=== PATIENT | male | born 1940 | race Caucasian/White ===

== ENCOUNTER 2025-03-04 13:08 | Inpatient (IN) | payer MEDICARE, OTHER, SELFPAY ==
[2025-03-04] VITALS (16 sets, daily range): BP systolic 101–124; BP diastolic 52–95; BMI 27.7; BMI 27.8
[2025-03-04 10:19] LABS: Hematocrit 36.3 % (39.0-52.0); Hemoglobin 12.3 g/dL (13.0-18.0); Mean Corp Hgb Conc. 33.9 g/dL (33.0-37.0); Mean Corpuscular Volume 91.4 fL (80.0-94.0); Nucleated Red Blood Cells % 0 % (-); Platelet Count 107 10^3/uL (130-400); Red Cell Dist. Width 13.3 % (11.5-14.5)
[2025-03-04 10:29] LABS: ALT (SGPT) 38 U/L (0-50); AST (SGOT) 57 U/L (17-59); Albumin 3.0 g/dl (3.5-5.0); Alkaline Phosphatase 54 U/L (38-126); Blood Urea Nitrogen 20 mg/dl (9-20); Calcium 8.0 mg/dl (8.4-10.2); Carbon Dioxide 26 mmol/L (22-30); Chloride 95 mmol/L (98-107); Glucose 158 mg/dl (70-99); Potassium 4.1 mmol/L (3.5-5.1); Sodium 127 mmol/L (135-145); Total Protein 5.7 g/dl (6.3-8.2); eGFR > 60.00
[2025-03-04 10:44] LABS: COVID-19 Antigen Negative (Negative)
[2025-03-04] MEDS: BUMEX 1 MG IV (11:12)
--- NOTE | 2025-03-04 11:37 | HPS.HSE ---
Addendum entered and electronically signed by Ana Chino MD 03/04/25 15:16:
Correction- admitted to [facility] from 02/09/2025 to 02/11/25 ( Not 03/03)
Original Note:
Family Physician
-
Family Physician:
Chief Complaint
-
Shortness of breath
History of Present Illness
This is a pleasant 84-year-old man who was admitted to [facility] from 02/09/2025 to 03/03. He was admitted with urinary retention had a catheter placed. While being at the hospital he had A-fib. Patient was started on Eliquis. Pringle
catheter was placed. Patient was also treated for acute HFpEF. BNP was 1951. He had an echo which showed normal ejection fraction grade 1 diastolic dysfunction RV mildly dilated. He had a Holter monitor placed which showed atrial tachycardia
longest was 28 beats PACs 5%, PVCs 0.5% and no A-fib. He saw his purchasing assistant Dr. Vaughan after the visit. Patient also checked his weight at home. Discharge summary states that his weight was 90.7 at discharge and it is 93 when I weighed him on
a standing scale in the ER. Patient then followed up with Dr. Cadena who is outpatient neurologist Pringle catheter was removed on 02/21/2025. He had to go back to urology office because of increased frequency and was treated with cefuroxime today
being the last day. Cultures are still pending when daughter called urology office. He has been having some cold sweats and mild fevers and his sats were below 90 which prompted daughter to bring patient to the hospital today. Daughter also
stated that patient had found a tick on his body sometime in January which he removed. No abdominal pain or diarrhea
Medical History
Past Medical History
Past Medical History: Reports Other
Additional Past Medical History:
Atrial fibrillation, hypertension, hyperlipidemia, diabetes
Past Surgical History: Reports None
Social History
Tobacco: Non-smoker
Alcohol: None
Drug: None
Living: With Family
Employment: Retired ([employer])
Family History
Family History: Other (Mom CVA)
Allergies / Home Medications
Allergies reflects when Allergies were last updated in [facility].
Home Medications with original date entered in [facility]
Allergy/Medication List:
Allergies
Allergy/AdvReac Type Severity Reaction Status Date / Time
No Known Allergies Allergy Verified 03/04/25 09:44
Home Medications
.Ceroxime? 500 mg PO BID 03/04/25
PreserVision AREDS 1 tab PO BID 03/04/25
amlodipine 10 mg tablet 10 mg PO DAILY 03/04/25
apixaban 5 mg tablet (Eliquis) 5 mg PO BID 03/04/25
bumetanide 0.5 mg tablet 0.5 mg PO MOWEFR 03/04/25
coQ10 (ubiquinol) 100 mg capsule (Qunol Charlie CoQ10) 100 mg PO DAILY 03/04/25
lisinopril 40 mg tablet 40 mg PO DAILY 03/04/25
metformin 500 mg tablet 500 mg PO DAILY 03/04/25
rosuvastatin 10 mg tablet 10 mg PO DAILY 03/04/25
tamsulosin 0.4 mg capsule 0.4 mg PO HS 03/04/25
Review of Systems
-
A 12 point ROS was completed and negative except as noted: Yes
Respiratory: Reports Trouble Breathing
Cardiac: Denies Chest Pain
Abdomen/GI: Denies Abdominal Pain, Nausea, Vomiting or Diarrhea
: Reports Frequency; Denies Flank Pain, Incontinence or Difficulty Voiding
Physical Exam
Vital Signs
Vital Signs
Temp Pulse Resp BP Pulse Ox
98.6 F 95 35 119/58 92
03/04/25 10:14 03/04/25 11:12 03/04/25 11:00 03/04/25 11:12 03/04/25 11:00
Physical Exam
General: Respiratory Distress (mild)
Respiratory: Rales (bases)
Cardiac: S1/S2 and Regular Rhythm
GI: Soft, Non Tender and Normal Bowel Sounds
Musculoskeletal: No Edema
Neuro: AO x 3 and Nonfocal/grossly intact
Laboratory Results
-
03/04/25 09:52
03/04/25 09:52
Laboratory Results
Total Bilirubin 1.0 mg/dl (0.2-1.3) 03/04/25 09:52
AST 57 U/L (17-59) 03/04/25 09:52
ALT 38 U/L (0-50) 03/04/25 09:52
Alkaline Phosphatase 54 U/L (38-126) 03/04/25 09:52
Impression/Plan
-
IMPRESSION/PLAN:
Chest p-[id number] by me-shows cephalization-pulmonary edema/congestion
EKG-sinus rhythm with PVCs, left axis deviation
Echo at [facility] February 2025-LV size normal. Wall thickness normal. EF 60 to 65%. Systolic function is normal. Wall motion is normal. Diastolic function is mildly abnormal consistent with grade 1 relaxation. RV is mildly dilated.
Systolic function is normal. LA moderately dilated. RA mildly dilated. Small septal aneurysm. Mild annular calcification. Trace MR. Mild TR. IVC is dilated. No pericardial effusion
# Shortness of breath
Acute hypoxic respiratory insufficiency
COVID negative, influenza negative
Chest x-ray supports CHF- Acute HFPEF
Admit to IVU
Intake output charting, daily weights
Weight was 90.7 kg when he was discharged from [facility] now 93.1 kg in the ER on a standing scale when I weighed him
Check troponins
Cardiology evaluation
Outpatient purchasing assistant is Dr. Vaughan
CHF education
# Recently treated UTI with Pringle catheter placement early February and removal on 02/21/2025. Follows up with Dr. Cadena as outpatient. On cefuroxime. Treat with ceftriaxone while waiting for urine cultures. Obtain cultures from urology when
it is back and resulted
PVR of 450 mL in the ER therefore Pringle catheter is being replaced in the ER now this admission for retention
Continue Flomax
# Tick bite end of January-check tickborne illness panel-orders placed
# Hyponatremia-check serum and urine osmolality, urine sodium. Likely hypervolemic. Continue to follow with diuretics
# Paroxysmal atrial fibrillation-continue Eliquis. Does not seem to be on any rate controlling agents as outpatient
Holter monitor outpatient-atrial tachycardia 141 with 6 episodes-28 beats is the max, PACs 5%, PVCs 0.5%. No A-fib
# Hypertension amlodipine, lisinopril as outpatient. Hold both as blood pressure soft
# Hyperlipidemia-continue rosuvastatin
# Diabetes-hemoglobin T2n-mabwegc
On metformin 500 mg daily as outpatient
Accu-Cheks and sliding scale coverage ordered
# DVT prophylaxis-Eliquis
# CODE STATUS
Discussed with nursing at bedside
Discussed with daughter in detail at bedside
Discussed with ER attending
Time spent over 50 min
Part of this note was created using voice recognition system. Occasional wrong word or��sound alike� substitutions may have inadvertently occurred due to the inherent limitations of voice recognition software. If noted kindly bring it to my
attention for correction.
[2025-03-04 11:56] LABS: Urine Character Clear (Clear)
[2025-03-04 12:23] LABS: Urine Squamous Cell 0-2 /LPF (Few)
--- NOTE | 2025-03-04 12:38 | CON.CAR ---
Addendum entered and electronically signed by Terence Bardales, 03/04/25 16:40:
Addendum:
Patient with return of AF by telemetry. EKG demonstrates AF RVR. By telemetry, patient's heart rate less than 120 bpm. Patient reporting no significant symptoms associated with this. Patient sitting up in bed eating dinner. Will plan to
continue to monitor treat underlying infection and heart failure and monitor on telemetry. If heart rate persistently above 120 bpm, consider low-dose beta-maribel we will hold off for now. Discussed with patient, family, nursing at bedside.
Addendum entered and electronically signed by Terence Bardales, 03/04/25 15:43:
I saw and examined the patient.
The Linter Drier Operator's note was reviewed and I agree with the note.
Comment:
Patient is a pleasant 84-year-old male with a history of hypertension, diabetes mellitus type 2, ELEAZAR, paroxysmal atrial fibrillation, heart failure preserved ejection fraction with recent admission/[facility] due to AF RVR and heart
failure. Patient diagnosed with UTI which has undergone treatment however has not had resolution. Patient reporting worsening shortness of breath and fatigue. Patient's daughter also reporting increasing somnolence patient. Additionally, patient
and daughter endorsing fevers for the past few days with increasing urinary frequency patient has been taking Tylenol. On evaluation, patient noted to have abnormal proBNP at 1550 with chest x-ray demonstrating pulmonary edema. Patient EKG sinus
rhythm/sinus tachycardia without significant ST-T abnormality. Additionally, patient with significantly abnormal UA. Patient given 1 mg IV Bumex in the emergency department. In discussion with patient, he denies chest pain, palpitations,
lightheadedness, dizziness, near-syncope, PND, orthopnea syncope, or weakness. He endorses shortness of breath, fatigue, fevers.
GENERAL: no acute distress
EYE: sclera anicteric
NECK: Supple, no JVD, no carotid bruit appreciated
ENT: normal nose, moist mucosal membranes
CARDIAC: Regular rate and rhythm, +S1/S2, no murmur, rubs, or gallops
CHEST/PULMONARY: Normal effort, bibasilar crackles
ABDOMEN: Soft, without focal tenderness or distention
NEUROLOGICAL: Alert and oriented x3
SKIN: Warm and dry, no rash no edema
PSYCH: Normal and appropriate interaction.
EKG sinus rhythm PVC 93 bpm
Telemetry sinus rhythm
A/P as below
Patient presenting with evidence of acute on chronic heart failure with preserved ejection fraction with abnormal UA concerning for urinary tract infection. Patient afebrile in ER however noted continual Tylenol use. RVR, agree with IV diuresis,
monitoring intake and output, daily weights. Echocardiogram performed here demonstrates normal LV RV function without significant valvular disease. Reserved LVEF.
Continue anticoagulation for stroke risk reduction in setting of paroxysmal atrial fibrillation and [id number] score of 4 (heart failure, hypertension, age, diabetes).
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
Monitor on telemetry
Discussed with patient, family at bedside
Original Note:
Consultation
Consultation Request
Date/Time Consultation Requested: 03/04/2025, 12 00
Date/Time Consultation Performed: 03/04/2025, 1230
Requesting Provider: Dr. Escalante
Performing Provider: BRIGIDO Callejas for Dr. Bardales
Reason for Consultation: Shortness of breath
Medical History
-
Chief Complaint: Shortness of breath
History of Present Illness:
84-year-old male with past medical history hypertension, type 2 diabetes, obstructive sleep apnea, recent diagnosis of paroxysmal atrial fibrillation and heart failure preserved EF presents to [facility] ED today, 03/04/2025 with increasing shortness of
breath with exertion over the past week and low pulse ox on home check today. Appears short of breath to family with talking and walking a few steps. He had a recent admission 02/09/2025 - 02/11/2025 to [facility] and was treated for heart
failure and new onset atrial fibrillation in setting of UTI. An echocardiogram showed preserved LV function with EF 60 to 65%. proBNP on admission was 1951. He was discharged on Bumex 0.5 mg 3 times a week. He was started on Eliquis for atrial
fibrillation. Subsequent outpatient 7-day monitor demonstrated normal sinus rhythm with 1418 episodes of atrial tachycardia, longest 28 beats, fastest 130 bpm with no atrial fibrillation, no significant pauses, and no high-grade AV block. Average
heart rate 76 bpm, range 50 to 105 bpm.
He was discharged from [facility] with a Pringle catheter in the setting of UTI which was subsequently removed but he had urinary frequency and fever and was diagnosed with UTI and restarted on antibiotics 4 to 5 days ago. He has been receiving
Tylenol for fever multiple days earlier this week, last dose 03/03 PM.
He denies chest pain, edema, palpitations, lightheadedness, syncope
At baseline he is very active with gardening, farming, projects around his home.
ED evaluation:
proBNP 1550
Chest x-ray: Increased pulmonary vascularity suggesting mild heart failure
EKG: Normal sinus rhythm with PVC, left axis deviation
BUN/creatinine 20/0.7, NA 127, K4.1, TSH pending, hemoglobin 12.3, WBC 9.6, platelets 107
He received Bumex 1 mg IV in ED
Past medical history:
Hypertension
Type 2 diabetes
Obstructive sleep apnea, uses dental device
Paroxysmal atrial fibrillation, diagnosed 02/09/2025
Acute heart failure preserved EF 02/09/2025
UTIs
Hyperlipidemia
Past Medical History
Past Medical History: Other (As above)
Social History
Tobacco: Non-Smoker
Alcohol: None
Family History
Family History: Reviewed & Not Pertinent
Allergies / Home Medications
Allergy/AdvReac Type Severity Reaction Status Date / Time
No Known Allergies Allergy Verified 03/04/25 09:44
�Medication �Instructions �Recorded �Confirmed �Type
acetaminophen 500 mg tablet 1,000 mg PO TIDPRN PRN mild pain 03/04/25 03/04/25 History
(Tylenol Extra Strength)
amlodipine 10 mg tablet 10 mg PO DAILY Blood Pressure 03/04/25 03/04/25 History
apixaban 5 mg tablet (Eliquis) 5 mg PO BID Blood Clot 03/04/25 03/04/25 History
Prevention/Tx
bumetanide 0.5 mg tablet 0.5 mg PO MOWEFR Fluid 03/04/25 03/04/25 History
Retention/Swelling
cefuroxime axetil 500 mg tablet 500 mg PO BID Infection 03/04/25 03/04/25 History
coQ10 (ubiquinol) 100 mg capsule 100 mg PO DAILY Supplement 03/04/25 03/04/25 History
(Qunol Charlie CoQ10)
lisinopril 40 mg tablet 40 mg PO DAILY Blood Pressure 03/04/25 03/04/25 History
metformin 500 mg tablet,extended 500 mg PO DAILY Diabetes 03/04/25 03/04/25 History
release 24 hr
polyethylene glycol 3350 17 gram 17 g PO DAILYPRN PRN constipation 03/04/25 03/04/25 History
oral powder packet (Miralax)
rosuvastatin 10 mg tablet 10 mg PO QPM High Cholesterol 03/04/25 03/04/25 History
tamsulosin 0.4 mg capsule 0.4 mg PO HS Urinary Issue 03/04/25 03/04/25 History
vitamins A,C,Q-bqpw-whvian 2,148 1 tab PO BID Supplement 03/04/25 03/04/25 History
mcg-113 mg-45 mg-17.4 mg tablet
(PreserVision AREDS)
Review of Systems
-
History Source: Patient
All other systems: Negative unless noted
Physical Exam
Vital Signs
Temp Pulse Resp BP Pulse Ox
98.6 F 102 31 124/85 94
03/04/25 10:14 03/04/25 12:15 03/04/25 12:15 03/04/25 12:01 03/04/25 12:15
Lab Results
03/04/25 09:52
03/04/25 09:52
Orw-X-Znwonqxwynv Pept 1550 pg/ml 03/04/25 09:52
GEN: No distress, awake, Ox3
HEENT: supple, anicteric, mmm
LUNGS: rales at bases
CV: Reg, S1/S2, no murmur
ABD: soft, BS+, NT/ND
EXT: No edema
NEURO: Gross non-focal
SKIN: No rash
Impression / Plan
-
PCP: Robin Cordova
Primary high school social studies teacher: Aleksey Vaughan
Impression:
Acute heart failure preserved EF
UTI
fevers
Paroxysmal atrial fibrillation
Hypertension
Hyperlipidemia
Type 2 diabetes
Obstructive sleep apnea
Previous cardiovascular testing:
-Echocardiogram 02/09/2025: EF 60 to 65%, wall motion normal, RV mildly dilated with normal function, mild TR
-7-day CAM monitor 02/15/2025: Normal sinus rhythm average heart rate 76, Range 50-105bpm, no A-fib, 1418 episodes of atrial tachycardia, longest 28 beats, fastest 6 beats at 130 bpm
-Exercise nuclear stress test 06/28/2022: 7 minutes on Joni protocol achieving 7.7 METS, no ischemia or infarct noted on perfusion imaging
Plan
84-year-old male w/ PMH HTN type 2 DM, ELEAZAR, recent diagnosis of paroxysmal atrial fibrillation and heart failure preserved EF presents to [facility] ED w/ one week h/o increasing shortness of breath with exertion, low pulse ox on home check today, fevers,
UTI. CXR with mild HF, proBNP 1550. In NSR on EKG and telemetry.
Plan:
acute on chronic HFpEF-
-IV diuresis
- may need uptitration of outpt diuretic
-check updated echo given more pronounced SOB and fatigue
-I/O, daily wts
-daily BMP
-cont Lisinopril
-consider advance GDMT
paroxysmal afib
-new diagnosis earlier this month
-currently in NSR
- Recent 1 week outpatient CAM monitor with no A-fib, frequent A. tach
- [id number] score 5 (heart failure, hypertension, diabetes, age), continue oral anticoagulation with Eliquis. Based on age, renal function with creatinine 0.7 and weight of 93 kg he is on appropriate dose of 5 mg twice daily
- Monitor on telemetry
- Consider adding beta-maribel if recurrent A-fib with elevated rates. Currently not on AV oziel blocking agent.
Fevers-
-thought to be due UTI, rechecking UA/C&S and checking blood cultures. WBC 9.6
-CXR without pneumonia
-cont ABX for UTI
HTN
-cont SOD CUTTER Lisinopril 40 mg daily and Amlodipine 10mg daily
hyperlipidemia
-cont Rosuvastatin
Data Reviewed
-
EKG: Tracing Personally Visualized and interpreted
Labs: Labs Reviewed by me
Old Records: Requested and Reviewed
[2025-03-04] MEDS: TYLENOL 650 MG PO (13:30)
[2025-03-04 14:01] LABS: Cortisol, Random 37.5 ug/dl; TSH 0.58 uIU/ml (0.47-4.68)
[2025-03-04] MEDS: LASIX 40 MG IV (16:09)
[2025-03-04] MEDS: ROCEPHIN 1000 MG IV (16:10)
[2025-03-04] MEDS: STERILE WATER FOR INJECTION 10 ML IV (16:10)
--- NOTE | 2025-03-04 16:30 | CM ---
Reviewed chat. Met with Mr. Wood and his daughter to review discharge plans. He states prior to admission he reside with his spouse in a one and half story home with one step to enter. He states prior to admission he was independent with
ambulation and adls. He states he does not have any DME in the home. He states he has never had VNA services. He states his one daughter resides next door and the other daughter down the street. Both daughters are very supportive. Will need to
see his current functional level to see if he will have any skilled care needs. Medical work-up in progress. The discharge plan is to return home with his spouse when medically stable.
[2025-03-04 17:01] LABS: Troponin I 0.025 ng/ml
[2025-03-04 18:04] LABS: Glucose - Point of Care 155 mg/dl (70-99)
[2025-03-04] MEDS: CRESTOR 10 MG PO (18:07)
[2025-03-04] MEDS: NOVOLOG FLEXPEN-LOW RESISTANCE 1 UNITS SC (18:08)
--- NOTE | 2025-03-04 19:28 | PTCARENOTE ---
~5985-5662: Patient brought up to unit via stretcher with ED RN. Pt AOx4, Afib 100s-110s on tele, asmyptomatic at this time, EKG obtained per order. 6L NC satting 88-90%. O2 increased to 7L midflow NC and humidification added, satting 92%, crackles
present in bases, IV lasix given per order. Patient does not c/o SOB or pain at this time. Patient diaphoretic on arrival, temp 99.2F. +2/2 pulses, no edema noted. Pringle intact and draining yellow concentrated urine. Ax1 ambulating from bed to
stretcher. IV abx given per order. Family at bedside.Bloodwork drawn and sent to lab. Admission charting completed and patient oriented to unit and call varela system. All needs met at this time, call varela within reach.
~6210-4001: Patient resting in bed. SpO2 ~92% on 7L midflow NC. Patient remains in Afib 110s-120s at this time. All needs met, call varela within reach. Handoff report given to nightshift RN.
[2025-03-04] MEDS: FLOMAX 0.4 MG PO (21:32)
[2025-03-04] MEDS: ELIQUIS 5 MG PO (21:32)
[2025-03-04 22:35] LABS: Troponin I 0.036 ng/ml
--- NOTE | 2025-03-04 23:04 | W.PN.UPDATE ---
Update Note
Progress Note Update
~ 23:00 Evaluated patient for increased O2 needs now on venti mask 26%/5L, increased respiratory rate 40, HR 110-120's up to 130's at times, BP 105/71. Rectal temp 102. �Asked RN to give Tylenol 1g PO now. Ordered stat CXR.similar to previous CXR.
Patient denies SOB, chest pain, palpitations, dizziness, headache or other symptoms.
~ 1:30 Pt doing better, RR 28-30, remains on venti mask, same settings, temp 97.9.
~ 5:30 am AM labs:� Na 128 (previously 127), calcium 7.6 (adjusted calcium 8.4), potassium 3.4 - ordered supplemental potassium 40 meq PO x 1.
[2025-03-04] MEDS: TYLENOL 1000 MG PO (23:09)
[2025-03-04 23:30] LABS: Glucose - Point of Care 113 mg/dl (70-99)
--- NOTE | 2025-03-04 23:32 | PTCARENOTE ---
Addendum entered by Radha Castellano RN 03/05/25 06:09:
Clarification: Ventimask settings 50% O2
Original Note:
Pt. rec'd at change of shift laying in bed on 7L midflow O2, tachypneic/labored with RR in the 30's; pulse ox 85%, did not increase with titration up to 9L (pt. is a mouth breather). Fine crackles auscultated bilateral base. Pt. denied any SOB
despite appearing so, also denied any chest pain /discomfort. BROOMCORN SEEDER notified and came to bedside, switched pt. over to Ventimask mask (26% with 5 L O2) with pulse ox improving to 91-93%. Pt. also in Afib with HR creeping up to 120's at times. Oral
temp. 99.6; rectal temp 102. Hospitalist KYLE Stein notified and came to bedside (pt. still tachypneic and labored) - portable CXR completed and Tylenol 1000 mg PO given per Sarita. Pt. currently resting quietly but still tachypneic (rate 30';s),
pulse ox 92% on same Venti settings, will monitor for effectiveness of Tylenol and symptom management. Troponin also bumped to 0.036 - Sarita notified, pt. still denies chest pain.
[2025-03-05] VITALS (46 sets, daily range): BP systolic 58–118; BP diastolic 47–71; BMI 27.7; BMI 26.7
--- NOTE | 2025-03-05 04:47 | PTCARENOTE ---
Pt.'s rectal temp down to 96.8; pt. still tachypneic with RR high 20's, pulse ox 90-94% on Ventimask, pt. still denies SOB - S. Nika FOFANA updated, CBC added to AM labs, drawn and sent; EKG completed as ordered.
[2025-03-05 05:02] LABS: Hematocrit 37.2 % (39.0-52.0); Hemoglobin 12.7 g/dL (13.0-18.0); Mean Corp Hgb Conc. 34.1 g/dL (33.0-37.0); Mean Corpuscular Volume 91.0 fL (80.0-94.0); Platelet Count 104 10^3/uL (130-400); Red Cell Dist. Width 13.5 % (11.5-14.5)
[2025-03-05 05:12] LABS: Blood Urea Nitrogen 25 mg/dl (9-20); Calcium 7.6 mg/dl (8.4-10.2); Carbon Dioxide 30 mmol/L (22-30); Chloride 96 mmol/L (98-107); Estimated Creatinine Clearance 89 ml/min; Glucose 104 mg/dl (70-99); Magnesium 2.2 mg/dl (1.6-2.3); Potassium 3.4 mmol/L (3.5-5.1); Sodium 128 mmol/L (135-145); eGFR > 60.00
[2025-03-05 05:31] LABS: Troponin I 0.036 ng/ml
[2025-03-05] MEDS: KCL 40 MEQ PO (06:00)
--- NOTE | 2025-03-05 07:26 | W.PN.HOSP.TC ---
Today's Communication/Plan
-
IV diuresis
appreciate Cardiology
ID consult
Assessment / Plan
Assessment / Plan
Mr. Juan Wood is a 84 yo man with hx paroxysmal atrial fibrillation on Eliquis, HTN, HLD, DM, HFpEF, recent admission to [facility] for urinary retention and recent treatment for UTI presents to the ER with fevers and shortness of breath.
CXR
IMPRESSION:
1. MODERATE ACUTE INTERSTITIAL CARDIOGENIC PULMONARY EDEMA which appears similar to the prior radiographic examination from 10:31 AM.
2. Moderate cardiomegaly.
3. Mildly decreased bilateral lung volumes.
EKG-sinus rhythm with PVCs, left axis deviation
Echo at [facility] February 2025-LV size normal. Wall thickness normal. EF 60 to 65%. Systolic function is normal. Wall motion is normal. Diastolic function is mildly abnormal consistent with grade 1 relaxation. RV is mildly dilated.
Systolic function is normal. LA moderately dilated. RA mildly dilated. Small septal aneurysm. Mild annular calcification. Trace MR. Mild TR. IVC is dilated. No pericardial effusion
Acute heart failure preserved EF Exacerbation
Shortness of breath
Acute hypoxic respiratory insufficiency
-COVID negative, influenza negative
-CXR results above; BNP 1550
-strict I/O, daily wieghts
-appreciate Cardiology consult
-IV Lasix 40mg BID
Outpatient animal chiropractor is Dr. Vaughan
CHF education
Fever
-recent treatment of UTI but repeat UA with only 6-10 WBC, doubt untreated UTI
-flu, covid negative
-awaiting blood cultures
-report of recent tick bite - lyme panel pending; blood parasites negative
-consult ID
-continue IV Ceftriaxone for now started for continued tx UTI
Urinary Retention - recurrent
Recently treated UTI with Pringle catheter placement early February and removal on 02/21/2025. Follows up with Dr. Cadena as outpatient.
- Obtain cultures from urology when it is back and resulted
-PVR of 450 mL in the ER therefore Pringle catheter is being replaced in the ER now this admission for retention
-Continue Flomax
Hyponatremia
-likely hypervolemic
-continue IV Lasix
-fluid restriction
Paroxysmal atrial fibrillation
-continue Eliquis
Holter monitor outpatient-atrial tachycardia 141 with 6 episodes-28 beats is the max, PACs 5%, PVCs 0.5%. No A-fib
Essential Hypertension
-hold TIRE MOLD ENGRAVER amlodipine and Lisinopril for low BP
Hyperlipidemia
-continue rosuvastatin
Diabetes-hemoglobin [id number]
On metformin 500 mg daily as outpatient
Accu-Cheks and sliding scale coverage ordered
DVT prophylaxis-Eliquis
FULL CODE
51 minute spent on patient care
Anticipated Discharge: 24 - 48 hours
Subjective/Interval History
-
Date of Service: March 05, 2025
he is feeling okay but on NRB
urinated a lot yesterday
no chest pain
no localizing pain
no joint pain or rash
Objective Data
-
Labs:
Laboratory Results
03/05/25
04:38
WBC 8.5
Hgb 12.7 L
Hct 37.2 L
Plt Count 104 L
Sodium 128 L
Potassium 3.4 L
Chloride 96 L
Carbon Dioxide 30
BUN 25 H
Creatinine 0.7
Glucose 104 H
Calcium 7.6 L
Vital Signs:
Vital Signs
Temp Pulse Resp BP Pulse Ox
96.8 F L 96 26 90/64 94
03/05/25 06:22 03/05/25 06:08 03/05/25 04:12 03/05/25 06:08 03/05/25 04:12
I&O
03/04/25 03/05/25 03/06/25
06:59 06:59 06:59
Intake Total 240 / 240
Output Total 2950 / 2950
Balance -2710 / -2710
Review of Systems
-
History Source: Patient
All other systems: Reviewed and negative
Physical Exam
-
General: No Apparent Distress
HEENT: PERRLA
Respiratory: Rales
Cardiac: S1/S2 and JVD
GI: Soft and Nontender
Musculoskeletal: No Edema
Neuro: AO x 3
Psych: Calm
Data Reviewed
-
Diagnostic Radiology: Report Reviewed by me
Labs: Labs Reviewed by me
[2025-03-05] MEDS: ELIQUIS 5 MG PO ×2 (08:05→20:41)
[2025-03-05] MEDS: GLUCOPHAGE XR EXTENDED RELEASE 500 MG PO (08:05)
[2025-03-05] MEDS: LASIX 40 MG IV (08:05)
[2025-03-05] MEDS: NOVOLOG FLEXPEN-LOW RESISTANCE SC ×2 (08:06→13:33)
[2025-03-05 08:08] LABS: Glucose - Point of Care 104 mg/dl (70-99)
--- NOTE | 2025-03-05 09:01 | W.PN.CARDCBS ---
Addendum entered and electronically signed by Terence Bardales DO 03/05/25 09:54:
I saw and examined the patient.
The Elder Assistant's note was reviewed and I agree with the note.
Comment:
Patient seen and examined this morning. Overnight, patient with increasing oxygen requirements due to mouth breathing however improved this morning. Roughly 2.7 L output over 24 hours. Telemetry remains AF with rate control occasional PVC.
Brief episodes of hypotension this morning when standing, improved when sitting and laying back. As needed midodrine added by primary service
Infectious disease now following, patient with temp up to 102 overnight without clear source of infection. Patient reports subjective fevers but reports decreased fatigue.
Continue IV diuresis as tolerated, agree with higher level of care
Monitor on telemetry, continue anticoagulation for stroke risk reduction
Blood pressure medications on hold due to hypotension
Discussed with infectious disease, nursing, hospitalist
Original Note:
Today's Communication / Plan
-
-cont IV diuresis
-Midodrine for hypotension
Impression / Plan
-
PCP: Robin Cordova
Primary stock sorter: Aleksey Vaughan
Impression:
Acute heart failure preserved EF
UTI
fevers
Hypotension
Paroxysmal atrial fibrillation
Hypertension
Hyperlipidemia
Type 2 diabetes
Obstructive sleep apnea
Previous cardiovascular testing:
Echo 03/05/2025: Normal LV/RV size and function, LVEF 61%, trace TR, PASP 35 mmHg
-Echocardiogram 02/09/2025 (at [facility]): EF 60 to 65%, wall motion normal, RV mildly dilated with normal function, mild TR
-7-day CAM monitor 02/15/2025: Normal sinus rhythm average heart rate 76, Range 50-105bpm, no A-fib, 1418 episodes of atrial tachycardia, longest 28 beats, fastest 6 beats at 130 bpm
-Exercise nuclear stress test 06/28/2022: 7 minutes on Joni protocol achieving 7.7 METS, no ischemia or infarct noted on perfusion imaging
Plan
84-year-old male w/ PMH HTN type 2 DM, ELEAZAR, recent diagnosis of paroxysmal atrial fibrillation and heart failure preserved EF presents to [facility] ED w/ one week h/o increasing shortness of breath with exertion, low pulse ox on home check today, fevers,
UTI. CXR with mild HF, proBNP 1550. Initially in normal sinus rhythm but went into A-fib with RVR 03/05.
Plan:
acute on chronic HFpEF-
-cont IV diuresis on Lasix 40 mg IV twice daily
-Weight down 2 pounds overnight to 203 lbs, I/O negative over 2700 ml
-Had increased oxygen requirement overnight and slept with Ventimask, transition back to nasal cannula oxygen this a.m.
-repeat CXR overnight with continued mod pulm edema
- may need uptitration of outpt diuretic, was on Bumex 0.5 mg -
- K 3.4- repleted with 40 meq KCl x 1
-Echo 03/05/2025: Normal LV/RV size and function, LVEF 61%, trace TR, PASP 35 mmHg
-I/O, daily wts
-daily BMP
-home Lisinopril on hold due to hypotension
-resume/advance GDMT as BP tolerates
-agree with initiation of Midodrine PRN
paroxysmal afib
-new diagnosis 02/2025
-Presented in normal sinus rhythm but went into A-fib 03/05
-Telemetry personally reviewed:-A-fib 96 to 120 bpm, PVCs, rate controlling meds limited by hypotension
-TSH 0.58
- Recent 1 week outpatient CAM monitor with no A-fib, frequent A. tach
- [id number] score 5 (heart failure, hypertension, diabetes, age), continue oral anticoagulation with Eliquis. Based on age, renal function with creatinine 0.7 and weight of 93 kg he is on appropriate dose of 5 mg twice daily
- Consider adding beta-maribel if BP tolerates
Fevers-
-thought to be due UTI, rechecking UA/C&S and checking blood cultures. WBC 8.5 03/06
-ID has been consulted
-CXR without pneumonia
-cont ABX for UTI
HTN
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
hyperlipidemia
-cont Rosuvastatin
Progress Note - Shake Sawyer
Subjective
Date of Service: March 05, 2025
-pt reports he feels less SOB but had increasing O2 requirement overnight
-wt down 2 lbs overnight
Objective
Labs:
03/05/25 04:38
03/05/25 04:38
Labs
Hgb 12.7 g/dL (13.0-18.0) L 03/05/25 04:38
Hct 37.2 % (39.0-52.0) L 03/05/25 04:38
Plt Count 104 10^3/uL (130-400) L 03/05/25 04:38
Sodium 128 mmol/L (135-145) L 03/05/25 04:38
Potassium 3.4 mmol/L (3.5-5.1) L 03/05/25 04:38
BUN 25 mg/dl (9-20) H 03/05/25 04:38
Creatinine 0.7 mg/dL (0.7-1.3) 03/05/25 04:38
Glucose 104 mg/dl (70-99) H 03/05/25 04:38
Troponins
03/04/25 03/04/25 03/04/25
16:32 21:29 21:47
Troponin I 0.025 Cancelled 0.036 H* D
03/05/25
04:38
Troponin I 0.036 H*
Vital Signs and I&O:
Vital Signs
Temp Pulse Resp BP Pulse Ox
99.2 F 96 22 105/71 94
03/05/25 07:41 03/05/25 08:56 03/05/25 07:41 03/05/25 08:56 03/05/25 07:41
Vital Signs
Temp Pulse Resp BP Pulse Ox
99.2 F 96 22 105/71 94
03/05/25 07:41 03/05/25 08:56 03/05/25 07:41 03/05/25 08:56 03/05/25 07:41
Intake & Output
03/03/25 03/04/25 03/05/25 03/06/25
06:59 06:59 06:59 06:59
Intake Total 240 / 240
Output Total 2950 / 2950
Balance -2710 / -2710
Physical Exam
Physical Exam
GEN: No distress, awake, Ox3
HEENT: supple, anicteric, mmm
LUNGS: rales at bases
CV: Irreg, irreg, no murmur
ABD: soft, BS+, NT/ND
EXT: No edema
NEURO: Gross non-focal
SKIN: No rash
--- NOTE | 2025-03-05 09:17 | CON.ID ---
Consultation
-
Date/Time Consultation Requested: 03/05/2025 0751
Date/Time Consultation Performed: 03/05/2025 0917
Requesting Provider: Dr. Bashir
Performing Provider: Dr. Rodriguez
Reason for Consultation: Fever
Chief Complaint / Past History
History of Present Illness
Juan Wood is an 84-year-old man being evaluated at the request of Dr. Bashir in regards to fever. History is obtained from chart review, along with patient interview.
The patient reports that he recently was admitted to [facility] in early February where he was treated for arrhythmia. Additionally, while he was in inpatient he was found to be in urinary retention and ultimately discharged with a Pringle
catheter. As an outpatient he followed with Urology, and the Pringle catheter was discontinued after approximately 10 days. Thereafter, he had episodes of increased urinary frequency and was recently placed on a course of cefuroxime which continued
through yesterday. The patient presents to [facility] yesterday secondary to reported sweats and low-grade fevers, with noted pulse ox levels below 90. Additionally, it is reported that the patient had a tick on his body in January which
he removed. No reported history of rash.
At admission, the patient was not found to be febrile, but did have a mild left shift. Additionally, he was found to be hyponatremic and with a mildly elevated troponin.
At this time he denies any pain. He denies any cough. He denies any shortness of breath. He denies any abdominal pain, nausea or vomiting. He denies any myalgias or arthralgias. All other systems were reviewed and were negative.
Past History
Additional Past Medical History:
HTN
DM type II
ELEAZAR
P A-fib
CHF
Past Surgical History: None
Allergy History:
No Known Allergies Allergy (Verified 03/04/25 09:44)
Medications Reviewed: Yes
Current Antibiotics:
Ceftriaxone 1 gm IV q.24 hours (day #2)
Social History
Tobacco: Non-Smoker
Alcohol: None
Drug: None
Personal:
Living: With Family
Employment: Retired
Review of Systems
Vital Signs
Temp Pulse Resp BP Pulse Ox
99.2 F 112 22 111/68 93
03/05/25 07:41 03/05/25 09:00 03/05/25 07:41 03/05/25 09:00 03/05/25 08:00
Physical Exam
Physical Exam
Constitutional: No Acute Distress, Comfortable, Chronically Ill and Non-toxic
Head: Normocephalic
Eyes: Pupils Equal, Pupils Round, No Conjunctival Hemorrhage and Sclera Anicteric
Oral: No Thrush and No Ulcers
Cardiovascular: Irregular Rate and S1/S2; Negative S3/S4 or Murmur
Pulmonary: Clear and Non Labored; Negative Wheezes, Rales or Rhonchi
Gastrointestinal: Soft, Non Tender, Non Distended, Normal Bowel Sounds, No Rebound and No Guarding
Genito-Urinary: Pringle and Clear Urine; Negative Turbid Urine or Hematuria
Extremities: Negative Edema, Cyanosis, Erythema, Splinter Hemorrhage or Janeway Lesions
Skin: Warm and Dry; Negative Rash or Jaundice
Neurological: Awake and Alert
Psychological: Calm
Lab / Diagnostic Study Results
03/05/25 04:38
03/05/25 04:38
Abs Immat Gran (auto) 0.1 10^3/uL (0-0.05) H 03/04/25 09:52
Absolute Neuts (auto) 7.7 10^3/uL (1.4-6.5) H 03/04/25 09:52
Absolute Lymphs (auto) 1.3 10^3/uL (1.2-3.4) 03/04/25 09:52
Absolute Monos (auto) 0.4 10^3/uL (0.1-0.6) 03/04/25 09:52
Absolute Basos (auto) 0.1 10^3/uL (0-0.2) 03/04/25 09:52
Immature Gran % 1.1 % (0-0.5) H 03/04/25 09:52
Neutrophils % 80.0 % (42.2-75.2) H 03/04/25 09:52
Lymphocytes % 13.7 % (20.5-51.1) L 03/04/25 09:52
Monocytes % 4.4 % (1.7-9.3) 03/04/25 09:52
Eosinophils % 0.3 % (0-6) 03/04/25 09:52
Basophils % 0.5 % (0-2) 03/04/25 09:52
Ur Squamous Epith Cells 0-2 /LPF (Few) 03/04/25 11:43
Microbiology Results
Micro:
03/04/25 14:36 Blood Parasites Smear - Final
Blood/Venous
03/04/25 13:34 Blood Culture - Pending
Blood/Venous
03/04/25 12:57 Blood Culture - Pending
Blood/Venous
03/04/25 11:43 Urine Culture - Pending
Urine
03/04/25 09:52 Influenza Types A & B (YAHIR) - Final
Nasal Swab Negative for Influenza A & B, NAAT
Negative results must be combined with clinical observations
and patient history.
Nucleic Acid Amplification test (NAAT)performed on the
[employer] platform.
Assessment / Plan
Reported fevers
- Inpatient temperatures noted, multiple different sites of acquisition also noted. (Oral, rectal, axillary)
CHF
Urinary retention with Pringle catheter
HTN
DM type II
ELEAZAR
P A-fib
Recommendations:
Continue with empiric ceftriaxone for today.
Blood cultures are currently pending; will continue to monitor.
Reported tick exposure in January. Tickborne pathogen workup in progress, although doubt current fevers are related to that exposure.
Continue to monitor white count and temperature curve.
Would avoid multiple sources of temperature monitoring, and remain consistent with either oral or axillary temperature acquisition.
Care Review
Plan reviewed with: Physician (Cardiology)
[2025-03-05 09:22] LABS: Glycohemoglobin (HgbA1c) 6.7 % (4.0-5.9)
--- NOTE | 2025-03-05 10:00 | PTCARENOTE ---
~2629-2089: Handoff report received from nightshift RN. Pt AOx4, Afib 90s-110s on tele, SBP 90s-110s, 40 IV lasix given per order, 95% on 6L 50% ventimask then switched to 7L MFNC satting 93%, crackles noted b/l bases. Patient denies pain at this
time. Patient OOB to chair with Ax2 and walker, appears weak. Once in chair, patient c/o sustained lightheadedness/dizziness. Patient also keeps closing eyes and appears to be asleep, but easily arrousable. Blood pressure obtained via doppler with
SBP 60. Patient plced back in bed and SBP returned to 90s. Dr. Emilee Bashir made aware. ID consulted and midodrine ordered, transfer orders also in for IMU.
~2334-4326: Report called to IMU. Patient transported in stable condition in bed with this RN and PCT.
[2025-03-05 12:06] LABS: Troponin I 0.029 ng/ml
[2025-03-05 13:28] LABS: Glucose - Point of Care 105 mg/dl (70-99)
[2025-03-05] MEDS: ROCEPHIN 1000 MG IV (17:09)
[2025-03-05] MEDS: STERILE WATER FOR INJECTION 10 ML IV (17:09)
[2025-03-05] MEDS: CRESTOR 10 MG PO (17:12)
--- NOTE | 2025-03-05 17:25 | PTCARENOTE ---
Pt received from IVU after increase of level of care to IMU. Pt AAOx3, but drowsy and lethargic. SaO2 92-94% on 7L midflow NC. SaO2 falls to 80s when patient sleeps and begins breathing with mouth. Venturi mask 6L/50% FiO2 applied; SaO2 93%.
Crackles auscultated at bases. MAP remains > 65, but PRN Midodrine administered per order for SBP < 90. Pringle catheter draining christine urine. 16:00 dose of Lasix 40mg IV due. SBP 80s - 90s. Dr. Bardales, Cardiology, notified. New order to hold dose and
order for Lasix 20mg IV.
[2025-03-05 17:55] LABS: Glucose - Point of Care 186 mg/dl (70-99)
[2025-03-05] MEDS: LASIX IV (18:00)
[2025-03-05] MEDS: NOVOLOG FLEXPEN-LOW RESISTANCE 1 UNITS SC (18:00)
[2025-03-05] MEDS: LASIX 20 MG IV (18:04)
[2025-03-05] MEDS: TYLENOL 650 MG PO (20:41)
[2025-03-05] MEDS: FLOMAX 0.4 MG PO (20:41)
[2025-03-05 21:33] LABS: Glucose - Point of Care 115 mg/dl (70-99)
[2025-03-06] VITALS (28 sets, daily range): BP systolic 81–144; BP diastolic 47–124; BMI 26.6
--- NOTE | 2025-03-06 02:18 | PTCARENOTE ---
Addendum entered by Hiram Best RN 03/06/25 02:20:
midodrine given x1 - bp remains soft side of normal
Original Note:
ax3- afib controlled- bp wnl 6 liters oxygen to maintain sats- Pringle clear yellow
[2025-03-06 05:10] LABS: Hematocrit 38.0 % (39.0-52.0); Hemoglobin 12.9 g/dL (13.0-18.0); Mean Corp Hgb Conc. 33.9 g/dL (33.0-37.0); Mean Corpuscular Volume 91.3 fL (80.0-94.0); Platelet Count 114 10^3/uL (130-400); Red Cell Dist. Width 13.6 % (11.5-14.5)
[2025-03-06 05:33] LABS: Blood Urea Nitrogen 28 mg/dl (9-20); Calcium 7.4 mg/dl (8.4-10.2); Carbon Dioxide 31 mmol/L (22-30); Chloride 94 mmol/L (98-107); Estimated Creatinine Clearance 89 ml/min; Glucose 93 mg/dl (70-99); Magnesium 2.2 mg/dl (1.6-2.3); Potassium 3.9 mmol/L (3.5-5.1); Sodium 128 mmol/L (135-145); eGFR > 60.00
--- NOTE | 2025-03-06 07:57 | W.PN.CARDCBS ---
Today's Communication / Plan
-
Continue IV diuresis
Antibiotics per infectious disease, primary service
Monitor on telemetry replete electrolytes
Encourage out of bed
Impression / Plan
-
PCP: Robin Cordova
Primary insurance verify rep: Aleksey Vaughan
Impression:
Acute heart failure preserved EF
UTI
fevers
Hypotension
Paroxysmal atrial fibrillation
Hypertension
Hyperlipidemia
Type 2 diabetes
Obstructive sleep apnea
Previous cardiovascular testing:
Echo 03/05/2025: Normal LV/RV size and function, LVEF 61%, trace TR, PASP 35 mmHg
-Echocardiogram 02/09/2025 (at [facility]): EF 60 to 65%, wall motion normal, RV mildly dilated with normal function, mild TR
-7-day CAM monitor 02/15/2025: Normal sinus rhythm average heart rate 76, Range 50-105bpm, no A-fib, 1418 episodes of atrial tachycardia, longest 28 beats, fastest 6 beats at 130 bpm
-Exercise nuclear stress test 06/28/2022: 7 minutes on Joni protocol achieving 7.7 METS, no ischemia or infarct noted on perfusion imaging
Plan
84-year-old male w/ PMH HTN type 2 DM, ELEAZAR, recent diagnosis of paroxysmal atrial fibrillation and heart failure preserved EF presents to [facility] ED w/ one week h/o increasing shortness of breath with exertion, low pulse ox on home check today, fevers,
UTI. CXR with mild HF, proBNP 1550. Initially in normal sinus rhythm but went into A-fib with RVR 03/05.
Plan:
acute on chronic HFpEF, improving
-cont IV diuresis on Lasix 40 mg IV twice daily
-Weight down 2 pounds 1128�1129 to 203 lbs, I/O negative over 2700 ml; from , additional 1 L output
- Back on nasal cannula, wean O2 as tolerated
-repeat CXR 03/04 with continued mod pulm edema
- Will need uptitration of outpt diuretic, was on Bumex 0.5 mg -- upon discharge
�Replete electrolytes, goal potassium greater than 4, magnesium greater than 2
-I/O, daily wts
-daily BMP
-home Lisinopril on hold due to hypotension
-resume/advance GDMT as BP tolerates
-agree with initiation of Midodrine PRN
paroxysmal afib
-new diagnosis 02/2025
-Presented in normal sinus rhythm but went into A-fib 03/05
-Telemetry personally reviewed:-A-fib 96 to 120 bpm, PVCs, rate controlling meds limited by hypotension
-TSH 0.58
- Recent 1 week outpatient CAM monitor with no A-fib, frequent A. tach
- [id number] score 5 (heart failure, hypertension, diabetes, age), continue oral anticoagulation with Eliquis. Based on age, renal function with creatinine 0.7 and weight of 93 kg he is on appropriate dose of 5 mg twice daily
- Consider adding beta-maribel if BP tolerates
Fevers, improving
-thought to be due UTI, rechecking UA/C&S and checking blood cultures. WBC 9.6�8 0.5�9.4
- Infectious disease following
-CXR without pneumonia
-cont ABX for UTI
HTN
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
hyperlipidemia
-cont Rosuvastatin
Progress Note - Department Helper
Subjective
Date of Service: March 06, 2025
Patient seen and examined this morning. No acute events overnight. Patient resting in bed. Denies chest pain, shortness of breath, fever, chills, nausea, vomiting, weakness.
Objective
Labs:
03/06/25 04:43
03/06/25 04:43
Labs
Hgb 12.9 g/dL (13.0-18.0) L 03/06/25 04:43
Hct 38.0 % (39.0-52.0) L 03/06/25 04:43
Plt Count 114 10^3/uL (130-400) L 03/06/25 04:43
Sodium 128 mmol/L (135-145) L 03/06/25 04:43
Potassium 3.9 mmol/L (3.5-5.1) 03/06/25 04:43
BUN 28 mg/dl (9-20) H 03/06/25 04:43
Creatinine 0.7 mg/dL (0.7-1.3) 03/06/25 04:43
Glucose 93 mg/dl (70-99) 03/06/25 04:43
Troponins
03/04/25 03/04/25 03/04/25
16:32 21:29 21:47
Troponin I 0.025 Cancelled 0.036 H* D
03/05/25 03/05/25
04:38 11:36
Troponin I 0.036 H* 0.029
Vital Signs and I&O:
Vital Signs
Temp Pulse Resp BP Pulse Ox
98.0 F 87 28 99/65 90
03/06/25 03:35 03/06/25 06:00 03/06/25 06:00 03/06/25 06:00 03/06/25 06:00
Vital Signs
Temp Pulse Resp BP Pulse Ox
98.0 F 87 28 99/65 90
03/06/25 03:35 03/06/25 06:00 03/06/25 06:00 03/06/25 06:00 03/06/25 06:00
Intake & Output
03/04/25 03/05/25 03/06/25 03/07/25
06:59 06:59 06:59 06:59
Intake Total 240 / 240 720 / 720
Output Total 2950 / 2950 1800 / 1800
Balance -2710 / -2710 -1080 / -1080
Physical Exam
Physical Exam
GENERAL: no acute distress
EYE: sclera anicteric
NECK: Supple, no JVD, no carotid bruit appreciated
ENT: normal nose, moist mucosal membranes
CARDIAC: Irregularly irregular, +S1/S2, no murmur, rubs, or gallops
CHEST/PULMONARY: Normal effort, faint bibasilar rales
ABDOMEN: Soft, without focal tenderness or distention
NEUROLOGICAL: Alert and oriented x3
SKIN: Warm and dry, no rash
PSYCH: Normal and appropriate interaction.
Telemetry shows AF, PVCs
[2025-03-06 07:59] LABS: Absolute Neutrophils -Man Diff 6.9 10^3/uL (1.4-6.5)
[2025-03-06 08:00] LABS: Hypochromasia 1+; Normal RBC Morphology No; Platelets Checked Yes; Polychromasia 1+
[2025-03-06 08:01] LABS: Total Cells Counted 100
[2025-03-06 08:26] LABS: Glucose - Point of Care 99 mg/dl (70-99)
--- NOTE | 2025-03-06 08:29 | W.PN.HOSP.TC ---
Today's Communication/Plan
-
diuresis
IV Ceftriaxone
follow up tick panel; will call family to see if outpatient cultures resulted
appreciate consultants
Assessment / Plan
Assessment / Plan
Mr. Juan Wood is a 84 yo man with hx paroxysmal atrial fibrillation on Eliquis, HTN, HLD, DM, HFpEF, recent admission to [facility] for urinary retention and recent treatment for UTI presents to the ER with fevers and shortness of breath. He is found
to be in acute heart failure. Tmax 102 night of admission.
CXR
IMPRESSION:
1. MODERATE ACUTE INTERSTITIAL CARDIOGENIC PULMONARY EDEMA which appears similar to the prior radiographic examination from 10:31 AM.
2. Moderate cardiomegaly.
3. Mildly decreased bilateral lung volumes.
EKG-sinus rhythm with PVCs, left axis deviation
Echo at [facility] February 2025-LV size normal. Wall thickness normal. EF 60 to 65%. Systolic function is normal. Wall motion is normal. Diastolic function is mildly abnormal consistent with grade 1 relaxation. RV is mildly dilated.
Systolic function is normal. LA moderately dilated. RA mildly dilated. Small septal aneurysm. Mild annular calcification. Trace MR. Mild TR. IVC is dilated. No pericardial effusion
Acute heart failure preserved EF Exacerbation
Shortness of breath
Acute hypoxic respiratory insufficiency
-COVID negative, influenza negative
-CXR results above; BNP 1550
-strict I/O, daily wieghts
-appreciate Cardiology consult
-IV Lasix 40mg BID
Outpatient customs opener verifier packer is Dr. Vaughan
CHF education
Fever
-recent treatment of UTI; repeat UA with only 6-10 WBC, patient was on Cefuroxime as outpatient
-flu, covid negative
-awaiting blood cultures
-report of recent tick bite - lyme panel pending; blood parasites negative
-ID consult appreciated
-continue IV Ceftriaxone for now started for continued tx UTI
Urinary Retention - recurrent
Recently treated UTI with Pringle catheter placement early February and removal on 02/21/2025. Follows up with Dr. Cadena as outpatient.
-Obtain cultures from urology when it is back and resulted
-PVR of 450 mL in the ER therefore Pringle catheter is being replaced in the ER now this admission for retention
-Continue Flomax
Hyponatremia
-likely hypervolemic
-continue IV Lasix
-fluid restriction - will increase restriction today
Paroxysmal atrial fibrillation
-continue Eliquis
Holter monitor outpatient-atrial tachycardia 141 with 6 episodes-28 beats is the max, PACs 5%, PVCs 0.5%. No A-fib
Essential Hypertension
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
Hypotension in setting of heart failure and fever
-Midodrine PRN ordered
Hyperlipidemia
-continue rosuvastatin
Diabetes-hemoglobin [id number]
On metformin 500 mg daily as outpatient
Accu-Cheks and sliding scale coverage ordered
DVT prophylaxis-Eliquis
FULL CODE
51 minute spent on patient care
Anticipated Discharge: > 48 hours
Subjective/Interval History
-
Date of Service: March 06, 2025
he is overall feeling better
urinating a lot
no fevers overnight
Objective Data
-
Labs:
Laboratory Results
03/06/25
04:43
WBC 9.4
Hgb 12.9 L
Hct 38.0 L
Plt Count 114 L
Sodium 128 L
Potassium 3.9
Chloride 94 L
Carbon Dioxide 31 H
BUN 28 H
Creatinine 0.7
Glucose 93
Calcium 7.4 L
Vital Signs:
Vital Signs
Temp Pulse Resp BP Pulse Ox
98.0 F 87 28 99/65 90
03/06/25 03:35 03/06/25 06:00 03/06/25 06:00 03/06/25 06:00 03/06/25 06:00
I&O
03/05/25 03/06/25 03/07/25
06:59 06:59 06:59
Intake Total 240 / 240 720 / 720
Output Total 2950 / 2950 1800 / 1800
Balance -2710 / -2710 -1080 / -1080
Review of Systems
-
History Source: Patient
All other systems: Reviewed and negative
Physical Exam
-
General: No Apparent Distress
HEENT: PERRLA
Respiratory: Rales
Cardiac: S1/S2 and JVD
GI: Soft and Nontender
Musculoskeletal: No Edema
Neuro: AO x 3
Psych: Calm
Data Reviewed
-
Diagnostic Radiology: Report Reviewed by me
Labs: Labs Reviewed by me
--- NOTE | 2025-03-06 08:29 | W.PN.ID1 ---
Date of Service
Date of Service: March 06, 2025
Today's Communication
Continue ceftriaxone for today.
Assessment / Plan
Reported fevers
- Inpatient temperatures noted, multiple different sites of acquisition also noted. (Oral, rectal, axillary)
CHF
Urinary retention with Pringle catheter
HTN
DM type II
ELEAZAR
P A-fib
Recommendations:
Continue with empiric ceftriaxone for today, although if cultures remain negative and patient remains afebrile, will likely de-escalate/discontinue in the next 24 to 48 hours.
Blood cultures NGTD x 24 hours; will continue to monitor.
Reported tick exposure in January. Tickborne pathogen workup in progress, although doubt current fevers are related to that exposure.
Continue to monitor white count and temperature curve.
Would avoid multiple sources of temperature monitoring, and remain consistent with either oral or axillary temperature acquisition.
����������������������������������������������������������
Chief Complaint
-: Fever
Subjective / Review of Systems
Patient seen and examined. No events overnight.
Review of Systems: No Fever
Vital Signs / Physical Exam
Vital Signs
Vital Signs
Temp Pulse Resp BP Pulse Ox
98.0 F 87 28 99/65 90
03/06/25 03:35 03/06/25 06:00 03/06/25 06:00 03/06/25 06:00 03/06/25 06:00
Physical Exam
Constitutional: No Acute Distress, Comfortable and Non-toxic
Cardiovascular: S1/S2; Negative S3/S4
Pulmonary: Clear and Non Labored
Gastrointestinal: Soft and Non Distended
Skin: Negative Rash or Jaundice
Psychological: Calm
Objective Data
Lab Data
Lab Results
03/06/25 04:43
03/06/25 04:43
Estimated Creat Clear 89 ml/min 03/06/25 04:43
Total Bilirubin 1.0 mg/dl (0.2-1.3) 03/04/25 09:52
AST 57 U/L (17-59) 03/04/25 09:52
ALT 38 U/L (0-50) 03/04/25 09:52
Alkaline Phosphatase 54 U/L (38-126) 03/04/25 09:52
Most recent labs reviewed.
Micro Results:
03/04/25 13:34 Blood Culture - Preliminary
Blood/Venous No Growth in 24 hours- Final report to follow
03/04/25 12:57 Blood Culture - Preliminary
Blood/Venous No Growth in 24 hours- Final report to follow
03/04/25 11:43 Urine Culture - Final
Urine NO GROWTH
03/04/25 14:36 Blood Parasites Smear - Final
Blood/Venous
03/04/25 09:52 Influenza Types A & B (YAHIR) - Final
Nasal Swab Negative for Influenza A & B, NAAT
Negative results must be combined with clinical observations
and patient history.
Nucleic Acid Amplification test (NAAT)performed on the
[employer] platform.
Imaging:
03/04/2025 CXR (portable): moderate acute interstitial cardiogenic pulmonary edema which appears similar to prior radiographic examination from earlier in the day. Moderate cardiomegaly. Mildly decreased bilateral lung volumes. No infiltrate
noted.
[2025-03-06] MEDS: KCL 20 MEQ PO (09:22)
[2025-03-06] MEDS: ELIQUIS 5 MG PO ×2 (09:22→21:06)
[2025-03-06] MEDS: GLUCOPHAGE XR EXTENDED RELEASE 500 MG PO (09:22)
[2025-03-06] MEDS: MIRALAX 17 GRAMS PO (09:26)
[2025-03-06] MEDS: NOVOLOG FLEXPEN-LOW RESISTANCE SC ×3 (09:26→17:41)
[2025-03-06] MEDS: LASIX 40 MG IV ×2 (10:14→17:05)
[2025-03-06 12:03] LABS: Glucose - Point of Care 131 mg/dl (70-99)
[2025-03-06] MEDS: CRESTOR 10 MG PO (17:05)
[2025-03-06] MEDS: ROCEPHIN 1000 MG IV (17:05)
[2025-03-06] MEDS: STERILE WATER FOR INJECTION 10 ML IV (17:05)
[2025-03-06 17:40] LABS: Glucose - Point of Care 109 mg/dl (70-99)
[2025-03-06] MEDS: FLOMAX 0.4 MG PO (21:06)
[2025-03-06] MEDS: TYLENOL 1000 MG PO (21:06)
[2025-03-06 21:33] LABS: Glucose - Point of Care 157 mg/dl (70-99)
[2025-03-07] VITALS (28 sets, daily range): BP systolic 79–118; BP diastolic 45–85; PULSE 99; O2SAT 95; BMI 26.0
--- NOTE | 2025-03-07 04:18 | PTCARENOTE ---
pt did very well oob to chair and back to bed- no significant events- 6 liters to maintain sats- bp soft /normal
[2025-03-07 05:08] LABS: Blood Urea Nitrogen 28 mg/dl (9-20); Calcium 7.4 mg/dl (8.4-10.2); Carbon Dioxide 30 mmol/L (22-30); Chloride 94 mmol/L (98-107); Estimated Creatinine Clearance 89 ml/min; Glucose 109 mg/dl (70-99); Potassium 3.6 mmol/L (3.5-5.1); Sodium 127 mmol/L (135-145); eGFR > 60.00
--- NOTE | 2025-03-07 07:23 | W.PN.HOSP.TC ---
Addendum entered and electronically signed by Ana Chino MD 03/08/25 13:26:
Correction heart rate is irregular
Addendum entered and electronically signed by Ana Chino MD 03/07/25 14:54:
Chest [id number]-[id number] by me-shows cephalization-pulmonary edema/congestion
EKG-sinus rhythm with PVCs, left axis deviation
Echo at [facility] February 2025-LV size normal. Wall thickness normal. EF 60 to 65%. Systolic function is normal. Wall motion is normal. Diastolic function is mildly abnormal consistent with grade 1 relaxation. RV is mildly dilated.
Systolic function is normal. LA moderately dilated. RA mildly dilated. Small septal aneurysm. Mild annular calcification. Trace MR. Mild TR. IVC is dilated. No pericardial effusion
Echo 03/04/2025-normal LV size and function. EF 61% mild to moderate LVH. Normal diastolic function. Normal RV size and function. Moderately dilated LA. Trace TR. PA pressure 35 mmHg.
On examination patient is awake alert oriented
Cardiovascular system S1-S2 regular
Chest few rales at bases
No pedal edema
# Shortness of breath
Acute hypoxic respiratory insufficiency
COVID negative, influenza negative
Chest x-ray supports CHF- Acute HFPEF
Intake output charting, daily weights
Weight was 90.7 kg when he was discharged from [place] now 93.1 kg in the ER . It is 86.9 on a bed scale. Patient should be weighed on a standing scale
Slightly elevated troponin-nonischemic myocardial injury
Cardiology evaluation
Outpatient machine cleaner is Dr. Vaughan
CHF education
# Fever-tickborne illness-Anaplasma positive-started on doxycycline
Tick was found from his abdomen and of January
# Recently treated UTI with Hernandez catheter placement early February and removal on 02/21/2025. Follows up with Dr. Cadena as outpatient.
Outpatient cultures with Streptococcus hemolyticus resistant to oxacillin and also tetracyclines
Will defer to infectious disease regarding treatment
Patient was treated with cefuroxime as outpatient and ceftriaxone here
Hernandez catheter placed for retention-taken out today 03/07/2025 for voiding trial
Continue Flomax
# Hypokalemia-resolved
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 Patient will benefit from Samsca. Pharmacy requesting nephrology evaluation for Samsca-consult placed
# Paroxysmal atrial fibrillation-continue Eliquis. Does not seem to be on any rate controlling agents as outpatient
Holter monitor outpatient-atrial tachycardia 141 with 6 episodes-28 beats is the max, PACs 5%, PVCs 0.5%. No A-fib
# Diabetes-hemoglobin A1c-6.7
On metformin 500 mg daily as outpatient-continue
Accu-Cheks and sliding scale coverage ordered
# Hypertension amlodipine, lisinopril as outpatient. Hold both as blood pressure soft
# Hyperlipidemia-continue rosuvastatin
# Hypoalbuminemia
# DVT prophylaxis-Eliquis
# CODE STATUS
Discussed with nursing
Discussed with pharmacy
Discussed with nephrology
Original Note:
Today's Communication/Plan
-
Anaplasma positive start Doxycycline
Voiding trial
Samsca for hyponatremia
Assessment / Plan
Assessment / Plan
Mr. Juan Wood is a 84 yo man with hx paroxysmal atrial fibrillation on Eliquis, HTN, HLD, DM, HFpEF, recent admission to [facility] for urinary retention and recent treatment for UTI presents to the ER with fevers and shortness of breath. He is found
to be in acute heart failure. Tmax 102 night of admission.
CXR105/04/24
1. MODERATE ACUTE INTERSTITIAL CARDIOGENIC PULMONARY EDEMA which appears similar to the prior radiographic examination from 10:31 AM.
2. Moderate cardiomegaly.
3. Mildly decreased bilateral lung volumes.
EKG 03/05/25
-afib with PVCs, left axis deviation
-QTcB 485
Echo at [facility] February 2025
-LV size normal. Wall thickness normal. EF 60 to 65%. Systolic function is normal. Wall motion is normal. Diastolic function is mildly abnormal consistent with grade 1 relaxation. RV is mildly dilated. Systolic function is normal. LA
moderately dilated. RA mildly dilated. Small septal aneurysm. Mild annular calcification. Trace MR. Mild TR. IVC is dilated. No pericardial effusion
Acute heart failure preserved EF Exacerbation
Shortness of breath
Acute hypoxic respiratory insufficiency
-COVID negative, influenza negative
-CXR results above; BNP 1550
-strict I/O - NB -295ml
-daily weights - 1.9kg loss
-appreciate Cardiology consult
-IV Lasix 40mg BID
-Pt is on 6L O2
-(+)hypochromasia, polychromasia
Outpatient machine cleaner is Dr. Vaughan
CHF education
Fever
-recent treatment of UTI; repeat UA with only 6-10 WBC, patient was on Cefuroxime as outpatient
-urine cx - neg
-flu, covid negative
-blood cultures - neg in 48h
-ID consult appreciated
-report of recent tick bite 2 months ago - Tickborne pathogen PCR testing is positive for Anaplasma--> start 2 weeks Doxycycline #D1
-blood parasites negative
-for continued tx UTI --> IV Ceftriaxone #D3 d/c switch to 2 week course Doxycycline 100mg PO BID D#1 for anaplasma coverage
Urinary Retention - recurrent
Recently treated UTI with Hernandez catheter placement early February and removal on 02/21/2025. Follows up with Dr. Cadena as outpatient.
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 ID was notified, colony count low.
-Voiding trial today
-Continue Flomax
Hyponatremia
-likely hypervolemic
-continue IV Lasix 40mg BID
-fluid restriction
-Na 127 - ordered Samsca
Paroxysmal atrial fibrillation
-continue Eliquis
Holter monitor outpatient-atrial tachycardia 141 with 6 episodes-28 beats is the max, PACs 5%, PVCs 0.5%. No A-fib
Essential Hypertension
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
Hypotension in setting of heart failure and fever
-on 03/05 SBP dropped to 60's and transferred to IMU from IVU
-Continue Midodrine PRN for SBP<90
Hyperlipidemia
-continue rosuvastatin
Diabetes Type II
-Hb A1c-6.7
On metformin 500 mg daily as outpatient
Accu-Cheks and sliding scale coverage ordered
DVT prophylaxis-Eliquis
FULL CODE
51 minute spent on patient care
Anticipated Discharge: > 48 hours
Subjective/Interval History
-
Date of Service: March 07, 2025
He reports feeling better today. He denies chills, abdominal pain. This morning his hernandez catheter was removed and he reports urgency to urinate every 30mins improved as well. No chest pain, SOB, palpitations.
Objective Data
-
Labs:
Laboratory Results
03/07/25
04:07
Sodium 127 L
Potassium 3.6
Chloride 94 L
Carbon Dioxide 30
BUN 28 H
Creatinine 0.7
Glucose 109 H
Calcium 7.4 L
Vital Signs:
Vital Signs
Temp Pulse Resp BP Pulse Ox
97.5 F 84 23 104/72 93
03/07/25 04:45 03/07/25 06:00 03/07/25 06:00 03/07/25 06:00 03/07/25 06:00
I&O
03/06/25 03/07/25 03/08/25
06:59 06:59 06:59
Intake Total 720 / 720 1680 / 1680
Output Total 1800 / 1800 1974 / 1974
Balance -1080 / -1080 -295 / -295
Review of Systems
-
History Source: Patient
Constitutional: Reports No Symptoms
EENT: Reports No Symptoms Reported
Respiratory: Reports No Symptoms
Cardiac: Reports No Symptoms
Abdomen/GI: Reports No Symptoms
Breast: Reports No Symptoms
Genitourinary: Reports No Symptoms
Musculoskeletal: Reports No Symptoms
Skin: Reports No Symptoms
Neuro: Reports No Symptoms
Endocrine: Reports No Symptoms
Hematologic / Lymphatic: Reports No Symptoms
Allergy / Immunology: Reports No Symptoms
Physical Exam
-
General: Well Developed, Well Nourished and Conversant
HEENT: Normocephalic, Atraumatic, Hearing Impaired and Oxygen (6L)
Respiratory: Clear to Auscultation and Decreased Breath Sounds
Cardiac: S1/S2 and Irregular Rhythm
Breast: Deferred by me
GI: Soft, Nontender and Nondistended
Rectal: Deferred by Provider
Genito-urinary: Hernandez (removed for voiding trial)
Musculoskeletal: No Clubbing, No Cyanosis and No Edema
Skin: Warm and Dry
Neuro: AO x 3, No Motor Deficits and No Sensory Deficits
Psych: Calm
[2025-03-07 07:51] LABS: Glucose - Point of Care 111 mg/dl (70-99)
[2025-03-07] MEDS: NOVOLOG FLEXPEN-LOW RESISTANCE SC ×2 (08:35→12:49)
[2025-03-07 09:32] LABS: Albumin 2.4 g/dl (3.5-5.0)
--- NOTE | 2025-03-07 09:44 | W.PN.CARDCBS ---
Today's Communication / Plan
-
Remains hypoxic on 4 L
Continue IV Lasix and follow sodium closely
Continue Rocephin
Remains in A-fib with reasonable rate control on Eliquis
Consider cardioversion prior to discharge when oxygenation has improved
Impression / Plan
-
PCP: Robin Cordova
Primary custom shoemaker: Aleksey Vaughan
Impression:
Acute heart failure preserved EF
UTI
fevers
Hypotension
Paroxysmal atrial fibrillation
Hypertension
Hyperlipidemia
Type 2 diabetes
Obstructive sleep apnea
Previous cardiovascular testing:
Echo 03/05/2025: Normal LV/RV size and function, LVEF 61%, trace TR, PASP 35 mmHg
-Echocardiogram 02/09/2025 (at [facility]): EF 60 to 65%, wall motion normal, RV mildly dilated with normal function, mild TR
-7-day CAM monitor 02/15/2025: Normal sinus rhythm average heart rate 76, Range 50-105bpm, no A-fib, 1418 episodes of atrial tachycardia, longest 28 beats, fastest 6 beats at 130 bpm
-Exercise nuclear stress test 06/28/2022: 7 minutes on Joni protocol achieving 7.7 METS, no ischemia or infarct noted on perfusion imaging
Plan
Appears to be improving from a volume standpoint with weight loss
Remains on 4 L of oxygen
Also remains hyponatremic
Unclear if hypoxemia is due to CHF versus pneumonia
Continue IV Lasix, may need to consider Samsca
Continue Rocephin
Lasix remains on hold due to hypotension
Continue midodrine
Remains in rate controlled atrial fibrillation and on Eliquis
Could consider cardioversion prior to discharge when oxygenation has improved although may go in and out of A-fib at home
[id number] score 5 (heart failure, hypertension, diabetes, age), continue oral anticoagulation with Eliquis. Based on age, renal function with creatinine 0.7 and weight of 93 kg he is on appropriate dose of 5 mg twice daily
Updated patient's daughter in detail
PREADMIT DATA
84-year-old male w/ PMH HTN type 2 DM, ELEAZAR, recent diagnosis of paroxysmal atrial fibrillation and heart failure preserved EF presents to [facility] ED w/ one week h/o increasing shortness of breath with exertion, low pulse ox on home check today, fevers,
UTI. CXR with mild HF, proBNP 1550. Initially in normal sinus rhythm but went into A-fib with RVR 03/05.
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
Subjective
Date of Service: March 07, 2025
No complaints
Objective
Labs:
03/06/25 04:43
03/07/25 04:07
Labs
Hgb 12.9 g/dL (13.0-18.0) L 03/06/25 04:43
Hct 38.0 % (39.0-52.0) L 03/06/25 04:43
Plt Count 114 10^3/uL (130-400) L 03/06/25 04:43
Sodium 127 mmol/L (135-145) L 03/07/25 04:07
Potassium 3.6 mmol/L (3.5-5.1) 03/07/25 04:07
BUN 28 mg/dl (9-20) H 03/07/25 04:07
Creatinine 0.7 mg/dL (0.7-1.3) 03/07/25 04:07
Glucose 109 mg/dl (70-99) H 03/07/25 04:07
Troponins
03/04/25 03/04/25 03/04/25
16:32 21:29 21:47
Troponin I 0.025 Cancelled 0.036 H* D
03/05/25 03/05/25
04:38 11:36
Troponin I 0.036 H* 0.029
Vital Signs and I&O:
Vital Signs
Temp Pulse Resp BP Pulse Ox
97.5 F 84 23 104/72 93
03/07/25 04:45 03/07/25 06:00 03/07/25 06:00 03/07/25 06:00 03/07/25 06:00
Vital Signs
Temp Pulse Resp BP Pulse Ox
97.5 F 84 23 104/72 93
03/07/25 04:45 03/07/25 06:00 03/07/25 06:00 03/07/25 06:00 03/07/25 06:00
Intake & Output
03/05/25 03/06/25 03/07/25 03/08/25
06:59 06:59 06:59 06:59
Intake Total 240 / 240 720 / 720 1680 / 1680
Output Total 2950 / 2950 1800 / 1800 1974 / 1974 75 / 75
Balance -2710 / -2710 -1080 / -1080 -295 / -295 -75 / -75
Physical Exam
Physical Exam
General: Well developed, well nourished in NAD.
Neck: Supple, no JVD, HJR, carotids +2 B/L, no bruits bilaterally.
Heart: Non displaced PMI, irregular, no murmurs, No S3, S4, no rubs.
Lungs: Scattered rhonchi
Extremities: No clubbing, cyanosis or edema bilaterally.
Neuro: Grossly nonfocal, awake, alert and oriented x3.
[2025-03-07] MEDS: LASIX 40 MG IV (09:46)
[2025-03-07] MEDS: GLUCOPHAGE XR EXTENDED RELEASE 500 MG PO (09:48)
[2025-03-07] MEDS: ELIQUIS 5 MG PO ×2 (09:49→20:45)
--- NOTE | 2025-03-07 09:54 | W.PN.ID1 ---
Date of Service
Date of Service: March 07, 2025
Today's Communication
Discontinue further Rocephin. Place on 2-week course of doxycycline.
Assessment / Plan
Reported fevers
- Inpatient temperatures noted, multiple different sites of acquisition also noted. (Oral, rectal, axillary)
CHF
Urinary retention
HTN
DM type II
ELEAZAR
P A-fib
Recommendations:
Tickborne pathogen PCR testing is positive for Anaplasma. Patient reports prior history of tick found on abdomen approximately 2 months ago.
Discontinue further ceftriaxone.
Will place on a 2-week course of doxycycline in the treatment of Anaplasma, although not sure whether patient may have already cleared his infection. (PCR testing may remain positive even after clearance of infection).
Continue to monitor white count and temperature curve.
Would avoid multiple sources of temperature monitoring, and remain consistent with either oral or axillary temperature acquisition.
����������������������������������������������������������
Chief Complaint
-: Fever
Subjective / Review of Systems
Patient seen and examined. Remains afebrile at this time. Of note, only recorded 'fever' was obtained via rectal route on 03/04.
Review of Systems: No Cough
Vital Signs / Physical Exam
Vital Signs
Vital Signs
Temp Pulse Resp BP Pulse Ox
97.5 F 84 23 117/66 93
03/07/25 04:45 03/07/25 06:00 03/07/25 06:00 03/07/25 09:46 03/07/25 06:00
Physical Exam
Constitutional: No Acute Distress, Comfortable and Non-toxic
Cardiovascular: S1/S2; Negative S3/S4
Pulmonary: Clear and Non Labored
Gastrointestinal: Soft and Non Distended
Skin: Negative Rash or Jaundice
Psychological: Calm
Objective Data
Lab Data
Lab Results
03/06/25 04:43
03/07/25 04:07
Estimated Creat Clear 89 ml/min 03/07/25 04:07
Total Bilirubin 1.0 mg/dl (0.2-1.3) 03/04/25 09:52
AST 57 U/L (17-59) 03/04/25 09:52
ALT 38 U/L (0-50) 03/04/25 09:52
Alkaline Phosphatase 54 U/L (38-126) 03/04/25 09:52
Most recent labs reviewed.
Micro Results:
03/04/25 13:34 Blood Culture - Preliminary
Blood/Venous No Growth in 48 hours- Final report to follow
03/04/25 12:57 Blood Culture - Preliminary
Blood/Venous No Growth in 48 hours- Final report to follow
03/04/25 11:43 Urine Culture - Final
Urine NO GROWTH
03/04/25 14:36 Blood Parasites Smear - Final - no blood parasites seen.
Blood/Venous
03/04/25 09:52 Influenza Types A & B (YAHIR) - Final
Nasal Swab Negative for Influenza A & B, NAAT
Negative results must be combined with clinical observations
and patient history.
Nucleic Acid Amplification test (NAAT)performed on the
[employer] platform.
Laboratory Tests
Tickborne pathogen PCR 03/04/25
14:36
A. phagocytophilum (PCR) Detected A
E.chaffeensis DNA (PCR) Not detected
E. ewingii/canis (PCR) Not detected
E. muris-like DNA (PCR) Not detected
Imaging:
03/04/2025 CXR (portable): moderate acute interstitial cardiogenic pulmonary edema which appears similar to prior radiographic examination from earlier in the day. Moderate cardiomegaly. Mildly decreased bilateral lung volumes. No infiltrate
noted.
[2025-03-07] MEDS: VIBRAMYCIN 100 MG PO ×2 (11:51→20:46)
[2025-03-07 12:12] LABS: Glucose - Point of Care 118 mg/dl (70-99)
[2025-03-07 12:19] LABS: Hematocrit 40.2 % (39.0-52.0); Hemoglobin 13.5 g/dL (13.0-18.0); Mean Corp Hgb Conc. 33.6 g/dL (33.0-37.0); Mean Corpuscular Volume 92.0 fL (80.0-94.0); Nucleated Red Blood Cells % 0.6 % (-); Platelet Count 152 10^3/uL (130-400); Red Cell Dist. Width 13.6 % (11.5-14.5)
[2025-03-07] MEDS: KCL ELIXIR 20 MEQ PO (13:07)
--- NOTE | 2025-03-07 13:10 | PTCARENOTE ---
pt AOX3 this AM, Pringle out DTV 1230, did meet this. during transfer to chair with PT became dizzy and not making sense verbally 79/54. Head back feet up. Midodrine administered. recheck BP after few mins 99/70. PT moved back to bed safely and pt
coherent. 109/75. Doxy started for positive blood result for Tick borne bite. FR, monitor Na+, wt.
--- NOTE | 2025-03-07 13:28 | W.CON.NEPH ---
Consultation
-
Date/Time Consultation Requested: 03/07/25 1300
Date/Time Consultation Performed: 03/07/25 1330
Requesting Provider: Ana Sanders
Performing Provider: Waleska Kuo
Reason for Consultation: Hypoantremia
Medical History
-
Chief Complaint: SOB
History of Present Illness:
84-year-old man with past medical history hypertension Amlodipine, lisinopril, type 2 diabetes on metformin, obstructive sleep apnea, recent diagnosis of paroxysmal atrial fibrillation on AC with Eliquis, and heart failure preserved EF on bumex who
presents to [facility] ED p 03/04/2025 with increasing shortness of breath with exertion over the past week. He had a recent admission 02/09/2025 - 02/11/2025 to [facility] and was treated for heart failure and new onset atrial fibrillation in
setting of UTI. An echocardiogram showed preserved LV function with EF 60 to 65%. He was discharged on Bumex 0.5 mg 3 times a week. He was started on Eliquis for atrial fibrillation. He was discharged from [place] with a Hernandez catheter in the
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 He was seen by Dr Cadena at [facility]. He is being treated for CHF flare with IV lasix with
significant loss of weight 6kg. His sodium remained low 127 despite diuresis hence Nephrology asked to eval for hyponatremia.
He denies chest pain. SOb improving, remains on 4lit of O2, he felt dizzy with PT today and has soft BPs for few days despite midodrine. He also on Doxycycline for tick bite in Jan. He had retention on admit and hernandez catheter was placed and just
removed this morning. He reports eating well, no n/.v/ no abd pain,. no diarrhea. No NSAIDs use.
Past Medical History
Atrial fibrillation, hypertension, hyperlipidemia, diabetes
Social History
Tobacco: Non-Smoker
Alcohol: None
Drug: None
Living: With Family
Employment: Retired
Family History
mom cva
Allergies / Home Medications
Allergy/AdvReac Type Severity Reaction Status Date / Time
No Known Allergies Allergy Verified 03/04/25 09:44
�Medication �Instructions �Recorded �Confirmed �Type
acetaminophen 500 mg tablet 1,000 mg PO TIDPRN PRN mild pain 03/04/25 03/04/25 History
(Tylenol Extra Strength)
amlodipine 10 mg tablet 10 mg PO DAILY Blood Pressure 03/04/25 03/04/25 History
apixaban 5 mg tablet (Eliquis) 5 mg PO BID Blood Clot 03/04/25 03/04/25 History
Prevention/Tx
bumetanide 0.5 mg tablet 0.5 mg PO MOWEFR Fluid 03/04/25 03/04/25 History
Retention/Swelling
coQ10 (ubiquinol) 100 mg capsule 100 mg PO DAILY Supplement 03/04/25 03/04/25 History
(Qunol Charlie CoQ10)
lisinopril 40 mg tablet 40 mg PO DAILY Blood Pressure 03/04/25 03/04/25 History
metformin 500 mg tablet,extended 500 mg PO DAILY Diabetes 03/04/25 03/04/25 History
release 24 hr
polyethylene glycol 3350 17 gram 17 g PO DAILYPRN PRN constipation 03/04/25 03/04/25 History
oral powder packet (Miralax)
rosuvastatin 10 mg tablet 10 mg PO QPM High Cholesterol 03/04/25 03/04/25 History
tamsulosin 0.4 mg capsule 0.4 mg PO HS Urinary Issue 03/04/25 03/04/25 History
vitamins A,C,Q-znpe-kcggrv 2,148 1 tab PO BID Supplement 03/04/25 03/04/25 History
mcg-113 mg-45 mg-17.4 mg tablet
(PreserVision AREDS)
Review of Systems
-
All other systems: Negative unless noted
Physical Exam
Vital Signs
Vital Signs
Temp Pulse Resp BP Pulse Ox
97.6 F 100 31 109/75 96
03/07/25 11:04 03/07/25 13:05 03/07/25 13:05 03/07/25 13:05 03/07/25 13:05
Lab Results
WBC 9.0 10^3/uL (4.8-10.8) 03/07/25 11:57
RBC 4.37 10^6/uL (4.70-6.10) L 03/07/25 11:57
Hgb 13.5 g/dL (13.0-18.0) 03/07/25 11:57
Hct 40.2 % (39.0-52.0) 03/07/25 11:57
Plt Count 152 10^3/uL (130-400) D 03/07/25 11:57
Sodium 127 mmol/L (135-145) L 03/07/25 04:07
Potassium 3.6 mmol/L (3.5-5.1) 03/07/25 04:07
Chloride 94 mmol/L (98-107) L 03/07/25 04:07
Carbon Dioxide 30 mmol/L (22-30) 03/07/25 04:07
BUN 28 mg/dl (9-20) H 03/07/25 04:07
Creatinine 0.7 mg/dL (0.7-1.3) 03/07/25 04:07
eGFR > 60.00 03/07/25 04:07
Glucose 109 mg/dl (70-99) H 03/07/25 04:07
Calcium 7.4 mg/dl (8.4-10.2) L 03/07/25 04:07
Buh-P-Fhurxqqqvxt Pept 1550 pg/ml 03/04/25 09:52
Albumin 2.4 g/dl (3.5-5.0) L 03/07/25 04:07
Physical Exam
General: Awake, Alert, Oriented, AOx3 and No Distress
HEENT: EOMI, Anicteric, Conjunctivae Clear and No JVD
Respiratory: Normal Excursion, Nonlabored Respirations and Other (coarse)
Cardiac: S1/S2 and Regular Rate/Rhythm
Breast: Deferred by me
Abdomen: Soft, Nontender and Nondistended
Rectal: Deferred by Provider
Musculoskeletal: No Cyanosis and No Edema
Skin: No Rash
Neuro: Nonfocal/Grossly Intact
Psych: Mood/afflect pleasant, Insight/judgement good and Appropriate
Data Reviewed
-
Labs: Labs Reviewed by me, Discussed with Nurse and Discussed with Patient
Assessment/Plan
-
IMP:
Shortness of breath
Acute hypoxic respiratory insufficiency
Acute on chronic HFPEF
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
Recently treated UTI with Hernandez catheter placement early February and removal on 02/21/2025. Follows up with Dr. Cadena as outpatient.
Hyponatremia
Paroxysmal atrial fibrillation
Diabetes-hemoglobin A1c-6.7
Hypertension now hypotension on midodrine
Hyperlipidemia
Hypoalbuminemia
Plan:
A/w sob, after recent d/c from [facility] treated for new afib and CHF, Hernandez for retention
hyponatremia likely multifactorial with CHF but also potentiated by low BPs
he lost close to 6kg since admit and no sig edema on exam
would hold lasix till he is more hemodynamically stable
cortisol was ok and echo noted with normal EF
would also wait on samsca too
recheck CXR, bnp
check U PCR for albuminuria on UA, serum alb low at 2.4
corrected gogo is normal, vit D level pending
follow ortho vitals and labs
monitor bladder scan off hernandez, on flomax
d/w pt and nursing
[2025-03-07 16:03] LABS: Vitamin D, 25-OH*** 40.9 ng/mL (30-80)
[2025-03-07] MEDS: CRESTOR 10 MG PO (17:03)
[2025-03-07 17:28] LABS: Glucose - Point of Care 152 mg/dl (70-99)
[2025-03-07] MEDS: NOVOLOG FLEXPEN-LOW RESISTANCE 1 UNITS SC (17:53)
[2025-03-07] MEDS: FLOMAX 0.4 MG PO (20:45)
[2025-03-07 21:27] LABS: Glucose - Point of Care 202 mg/dl (70-99)
--- NOTE | 2025-03-07 22:30 | PTCARENOTE ---
Recc'd pt at shift change; AAOx3, able to make needs known, NINILCHIK. Offers no complaints. Afib on the monitor, controlled in the 70s-80s. Tolerating RA, SpO2 at or above goal of 92%. Lungs clear, diminished in the bases, deep breathing exercises
encouraged. Remainder of assessment as documented. Updated on POC and need for urine specimen for outstanding lab order, urinal at the bedside within reach. D/w pt the importance of alerting staff if he feels he needs to get out of bed, pt
verbalizes compliance, bed alarm in place for safety. Pt resting comfortably in bed at this time, call varela within reach.
[2025-03-08] VITALS (33 sets, daily range): BP systolic 83–136; BP diastolic 50–92; PULSE 82–110; O2SAT 94; BMI 25.8; BMI 26.7
[2025-03-08 05:30] LABS: Hematocrit 38.7 % (39.0-52.0); Hemoglobin 12.8 g/dL (13.0-18.0); Mean Corp Hgb Conc. 33.1 g/dL (33.0-37.0); Mean Corpuscular Volume 91.3 fL (80.0-94.0); Platelet Count 178 10^3/uL (130-400); Red Cell Dist. Width 13.8 % (11.5-14.5)
[2025-03-08 05:56] LABS: Blood Urea Nitrogen 21 mg/dl (9-20); Calcium 7.4 mg/dl (8.4-10.2); Carbon Dioxide 30 mmol/L (22-30); Chloride 101 mmol/L (98-107); Estimated Creatinine Clearance 104 ml/min; Glucose 123 mg/dl (70-99); Potassium 3.8 mmol/L (3.5-5.1); Sodium 130 mmol/L (135-145); eGFR > 60.00
[2025-03-08 07:37] LABS: Glucose - Point of Care 114 mg/dl (70-99)
--- NOTE | 2025-03-08 07:52 | W.PN.HOSP.TC ---
Addendum entered and electronically signed by Ana Chino MD 03/08/25 15:09:
Correction acute hypoxic respiratory failure not insufficiency
Addendum entered and electronically signed by Ana Chino MD 03/08/25 13:26:
Seen and examined the patient. Agree with the plan formulated by the resident. See changes in my documentation
Addendum entered and electronically signed by Ana Chino MD 03/08/25 13:25:
Chest [id number] by me-shows cephalization-pulmonary edema/congestion
EKG-sinus rhythm with PVCs, left axis deviation
Echo at [facility] February 2025-LV size normal. Wall thickness normal. EF 60 to 65%. Systolic function is normal. Wall motion is normal. Diastolic function is mildly abnormal consistent with grade 1 relaxation. RV is mildly dilated.
Systolic function is normal. LA moderately dilated. RA mildly dilated. Small septal aneurysm. Mild annular calcification. Trace MR. Mild TR. IVC is dilated. No pericardial effusion
Echo 03/04/2025-normal LV size and function. EF 61% mild to moderate LVH. Normal diastolic function. Normal RV size and function. Moderately dilated LA. Trace TR. PA pressure 35 mmHg.
On examination patient is awake alert oriented
Cardiovascular system S1-S2 irregular
Chest CTA
No pedal edema
# Shortness of breath
Acute hypoxic respiratory insufficiency
COVID negative, influenza negative
Chest x-ray supports CHF- Acute HFPEF- CXR improved.
Intake output charting, daily weights
Weight was 90.7 kg when he was discharged from [place] now 93.1 kg in the ER . 89.2 KG today. ( Patient should be weighed on a standing scale)
Slightly elevated troponin-nonischemic myocardial injury
Cardiology following
Outpatient copy writer is Dr. Vaughan
CHF education
Patient slightly orthostatic-may be overdiuresed but ,he does give a history that he always is very cautious when changing positions may be he has longstanding orthostatic hypotension
# Fever-tickborne illness-Anaplasma positive-started on doxycycline
Tick was found from his abdomen and of January
# Recently treated UTI with Pringle catheter placement early February and removal on 02/21/2025. Follows up with Dr. Cadena as outpatient.
Outpatient cultures with Streptococcus hemolyticus resistant to oxacillin and also tetracyclines
Will defer to infectious disease regarding treatment
Patient was treated with cefuroxime as outpatient and ceftriaxone here.
No more AB per D/W ID as not enough colonies of bacteria to call it a UTI.
Pringle catheter placed for retention-taken out 03/07/2025 , voiding well.
Continue Flomax
# Hypokalemia-resolved
# Hyponatremia-Holdimg lasix
# Paroxysmal atrial fibrillation-continue Eliquis. Does not seem to be on any rate controlling agents as outpatient
Rates are controlled.
Holter monitor outpatient-atrial tachycardia 141 with 6 episodes-28 beats is the max, PACs 5%, PVCs 0.5%. No A-fib
Plan for OTTONIEL CV tomorrow
# Diabetes-hemoglobin A1c-6.7
On metformin 500 mg daily as outpatient-continue
Accu-Cheks and sliding scale coverage ordered
# Hypertension amlodipine, lisinopril as outpatient. Hold both as blood pressure soft
# Hyperlipidemia-continue rosuvastatin
# Hypoalbuminemia
# DVT prophylaxis-Eliquis
# CODE STATUS
Discussed with nursing
Discussed with nephrology and Cardiology
I did not call the family as Dr. Cortez has updated patient's daughter and granddaughter.
Part of this note was created using voice recognition system. Occasional wrong word or��sound alike� substitutions may have inadvertently occurred due to the inherent limitations of voice recognition software. If noted kindly bring it to my
attention for correction.
Original Note:
Today's Communication/Plan
-
If Na stable tomorrow possible discharge
Step down from IMU
Use oral appliance for hypoxemia at night
Daily weight check
Daily I/O
Follow recs
Assessment / Plan
Assessment / Plan
Mr. Juan Wood is a 84 yo man with hx paroxysmal atrial fibrillation on Eliquis, HTN, HLD, DM, HFpEF, recent admission to [facility] for urinary retention and recent treatment for UTI presents to the ER with fevers and shortness of breath. He is found
to be in acute heart failure. Tmax 102 night of admission.
CXR105/04/24
1. MODERATE ACUTE INTERSTITIAL CARDIOGENIC PULMONARY EDEMA which appears similar to the prior radiographic examination from 10:31 AM.
2. Moderate cardiomegaly.
3. Mildly decreased bilateral lung volumes.
EKG 03/05/25
-afib with PVCs, left axis deviation
-QTcB 485
Echo at [facility] February 2025
-LV size normal. Wall thickness normal. EF 60 to 65%. Systolic function is normal. Wall motion is normal. Diastolic function is mildly abnormal consistent with grade 1 relaxation. RV is mildly dilated. Systolic function is normal. LA
moderately dilated. RA mildly dilated. Small septal aneurysm. Mild annular calcification. Trace MR. Mild TR. IVC is dilated. No pericardial effusion
Acute heart failure preserved EF Exacerbation
Shortness of breath
Acute hypoxic respiratory insufficiency
-COVID negative, influenza negative
-CXR results above; BNP 1550
-strict I/O NB - 885
-daily weights
-appreciate Cardiology consult
-IV Lasix 40mg BID
-Pt is on RA
-(+)hypochromasia, polychromasia
Outpatient copy writer is Dr. Vaughan
CHF education
Fever
-recent treatment of UTI; repeat UA with only 6-10 WBC, patient was on Cefuroxime as outpatient
-urine cx - neg
-flu, covid negative
-blood cultures - neg in 48h
-ID consult appreciated
-report of recent tick bite 2 months ago - Tickborne pathogen PCR testing is positive for Anaplasma--> start 2 weeks Doxycycline #D2
-blood parasites negative
-for continued tx UTI --> IV Ceftriaxone #D3 d/c switch to 2 week course Doxycycline 100mg PO BID D#2 for anaplasma coverage
-PT/OT- home health
Urinary Retention - recurrent
Recently treated UTI with Pringle catheter placement early February and removal on 02/21/2025. Follows up with Dr. Cadena as outpatient
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 ID was notified, colony count low
-Voiding trial today - PVR 235ml
-Continue Flomax
Hyponatremia
-likely hypervolemic
-continue IV Lasix 40mg BID-- -hold lasix till he is more hemodynamically stable
-fluid restriction
-Na 127 - wait on samsca per nephro
-Consult nephrology, input appreciated
-check U total protein<5, U Cr: 95176, Protein /Cr 0.1 for albuminuria on UA, serum alb low at 2.4
Paroxysmal atrial fibrillation
-continue Eliquis
Holter monitor outpatient-atrial tachycardia 141 with 6 episodes-28 beats is the max, PACs 5%, PVCs 0.5%.
-Remains in rate controlled atrial fibrillation and on Eliquis
-Consider cardioversion prior to discharge when oxygenation has improved per cards
Essential Hypertension
-hold [employer] BREAST amlodipine and Lisinopril for low BP
Hypotension in setting of heart failure and fever
-on 03/05 SBP dropped to 60's and transferred to IMU from IVU
-Continue Midodrine PRN for SBP<90
Obstructive Sleep Apnea
-His O2 sat mid 80s at night
-He has CPAP at home refused wearing it
-He has oral appliance with him- he has not been wearing - per nurse encourage using it tonight
Hyperlipidemia
-continue rosuvastatin
Diabetes Type II
-Hb A1c-6.7
On metformin 500 mg daily as outpatient
Accu-Cheks and sliding scale coverage ordered
DVT prophylaxis-Eliquis
FULL CODE
51 minute spent on patient care
Anticipated Discharge: Within 24 hours
Subjective/Interval History
-
Date of Service: March 08, 2025
He is feeling better overall. He has been urinating without having any issues. Denies abdominal pain, palpitations, urinary urgency. He denies SOB on RA.
Objective Data
-
Labs:
Laboratory Results
03/08/25
05:16
WBC 7.4
Hgb 12.8 L
Hct 38.7 L
Plt Count 178
Sodium 130 L
Potassium 3.8
Chloride 101
Carbon Dioxide 30
BUN 21 H
Creatinine 0.5 L
Glucose 123 H
Calcium 7.4 L
Vital Signs:
Vital Signs
Temp Pulse Resp BP Pulse Ox
97.7 F 78 15 112/82 92
03/08/25 03:08 03/08/25 06:00 03/08/25 06:00 03/08/25 05:00 03/08/25 06:00
I&O
03/07/25 03/08/25 03/09/25
06:59 06:59 06:59
Intake Total 1680 / 1680 790 / 790
Output Total 1974 1775 / 1775
Balance -295 / -295 -985 / -985
Review of Systems
-
History Source: Patient
Constitutional: Reports No Symptoms
EENT: Reports No Symptoms Reported
Respiratory: Reports No Symptoms
Cardiac: Reports No Symptoms
Abdomen/GI: Reports No Symptoms
Breast: Reports No Symptoms
Genitourinary: Reports No Symptoms
Musculoskeletal: Reports No Symptoms
Skin: Reports No Symptoms
Neuro: Reports No Symptoms
Endocrine: Reports No Symptoms
Hematologic / Lymphatic: Reports No Symptoms
Allergy / Immunology: Reports No Symptoms
Physical Exam
-
General: Well Developed, Well Nourished and Conversant
HEENT: Normocephalic, Atraumatic, Hearing Impaired and Oxygen
Respiratory: Clear to Auscultation and Decreased Breath Sounds
Cardiac: S1/S2 and Irregular Rhythm
Breast: Deferred by me
GI: Soft, Nontender and Nondistended
Rectal: Deferred by Provider
Genito-urinary: Clear Urine
Musculoskeletal: No Clubbing, No Cyanosis and No Edema
Skin: Warm and Dry
Neuro: AO x 3, No Motor Deficits and No Sensory Deficits
Hematologic / Lymphatic: No Lymphadenopathy
Psych: Calm
[2025-03-08] MEDS: ELIQUIS 5 MG PO ×2 (08:59→20:05)
[2025-03-08] MEDS: NOVOLOG FLEXPEN-LOW RESISTANCE SC (08:59)
[2025-03-08] MEDS: VIBRAMYCIN 100 MG PO ×2 (09:00→20:05)
[2025-03-08] MEDS: GLUCOPHAGE XR EXTENDED RELEASE 500 MG PO (09:00)
--- NOTE | 2025-03-08 09:54 | W.PN.ID1 ---
Date of Service
Date of Service: March 08, 2025
Today's Communication
Continue doxycycline.
Assessment / Plan
Reported fevers
- Inpatient temperatures noted, multiple different sites of acquisition also noted. (Oral, rectal, axillary)
CHF
Urinary retention
HTN
DM type II
ELEAZAR
P A-fib
Recommendations:
Tickborne pathogen PCR testing is positive for Anaplasma. Patient reports prior history of tick found on abdomen approximately 2 months ago.
Continue doxycycline (d#2 of 14) in the treatment of Anaplasma, although not sure whether patient may have already cleared his infection. (PCR testing may remain positive even after clearance of infection).
Lyme serology pending
Continue to monitor white count and temperature curve.
����������������������������������������������������������
Chief Complaint
-: Fever
Subjective / Review of Systems
Review of Systems: No Fever, No Chills, No Cough and No Sputum Production
Vital Signs / Physical Exam
Vital Signs
Vital Signs
Temp Pulse Resp BP Pulse Ox
98.0 F 87 24 107/70 94
03/08/25 08:00 03/08/25 09:48 03/08/25 09:48 03/08/25 09:48 03/08/25 09:48
Physical Exam
Constitutional: No Acute Distress, Comfortable and Non-toxic
Cardiovascular: Regular Rate and S1/S2; Negative S3/S4
Pulmonary: Clear and Non Labored; Negative Rhonchi
Gastrointestinal: Soft and Non Distended
Skin: Negative Rash or Jaundice
Neurological: Awake, Alert and Oriented
Psychological: Calm
Objective Data
Lab Data
Lab Results
03/08/25 05:16
03/08/25 05:16
Estimated Creat Clear 104 ml/min 03/08/25 05:16
Total Bilirubin 1.0 mg/dl (0.2-1.3) 03/04/25 09:52
AST 57 U/L (17-59) 03/04/25 09:52
ALT 38 U/L (0-50) 03/04/25 09:52
Alkaline Phosphatase 54 U/L (38-126) 03/04/25 09:52
Most recent labs reviewed.
Micro Results:
03/04/25 13:34 Blood Culture - Preliminary
Blood/Venous No Growth in 72 hours- Final report to follow
03/04/25 12:57 Blood Culture - Preliminary
Blood/Venous No Growth in 72 hours- Final report to follow
03/04/25 11:43 Urine Culture - Final
Urine NO GROWTH
03/04/25 14:36 Blood Parasites Smear - Final
Blood/Venous
03/04/25 09:52 Influenza Types A & B (YAHIR) - Final
Nasal Swab Negative for Influenza A & B, NAAT
Negative results must be combined with clinical observations
and patient history.
Nucleic Acid Amplification test (NAAT)performed on the
[employer] platform.
Laboratory Tests
Tickborne pathogen PCR 03/04/25
14:36
A. phagocytophilum (PCR) Detected A
E.chaffeensis DNA (PCR) Not detected
E. ewingii/canis (PCR) Not detected
E. muris-like DNA (PCR) Not detected
Imaging:
03/04/2025 CXR (portable): moderate acute interstitial cardiogenic pulmonary edema which appears similar to prior radiographic examination from earlier in the day. Moderate cardiomegaly. Mildly decreased bilateral lung volumes. No infiltrate
noted.
Chest X-Ray: Image Reviewed and Report Reviewed
--- NOTE | 2025-03-08 10:50 | W.PN.CARDCBS ---
Today's Communication / Plan
-
He is on room air
Lasix on hold due to hypotension it may have been because of hyponatremia which has improved
He was on Bumex 0.5 mg Friday as an outpatient may consider resuming Bumex 0.5 mg daily in a.m.
Set up for cardioversion in a.m. to try to get back in sinus rhythm hopefully will hold in sinus rhythm now that oxygenation has improved
Stable cardiology status for discharge after cardioversion
Impression / Plan
-
PCP: Robin Cordova
Primary marine underwriter: Aleksey Vaughan
Impression:
Acute heart failure preserved EF
UTI
fevers
Hypotension
Paroxysmal atrial fibrillation
Hypertension
Hyperlipidemia
Type 2 diabetes
Obstructive sleep apnea
Previous cardiovascular testing:
Echo 03/05/2025: Normal LV/RV size and function, LVEF 61%, trace TR, PASP 35 mmHg
-Echocardiogram 02/09/2025 (at [place]): EF 60 to 65%, wall motion normal, RV mildly dilated with normal function, mild TR
-7-day CAM monitor 02/15/2025: Normal sinus rhythm average heart rate 76, Range 50-105bpm, no A-fib, 1418 episodes of atrial tachycardia, longest 28 beats, fastest 6 beats at 130 bpm
-Exercise nuclear stress test 06/28/2022: 7 minutes on Joni protocol achieving 7.7 METS, no ischemia or infarct noted on perfusion imaging
Plan
He has significantly improved and off of oxygen.
Sodium has improved to 130.
Lasix on hold due to hypotension and may be cause of hyponatremia
Consider change to oral Lasix 40 mg daily on 03/09
Continue antibiotics for possible pneumonia as well.
Continue midodrine
Remains in rate controlled atrial fibrillation and on Eliquis
Will plan on cardioversion in a.m. to try to get in sinus rhythm but could have high risk of recurrent A-fib
Hopefully will remain in sinus rhythm as oxygenation has improved significantly
[id number] score 5 (heart failure, hypertension, diabetes, age), continue oral anticoagulation with Eliquis. Based on age, renal function with creatinine 0.7 and weight of 93 kg he is on appropriate dose of 5 mg twice daily
Updated patient's daughter in detail and also her granddaughter
PREADMIT DATA
84-year-old male w/ PMH HTN type 2 DM, ELEAZAR, recent diagnosis of paroxysmal atrial fibrillation and heart failure preserved EF presents to [facility] ED w/ one week h/o increasing shortness of breath with exertion, low pulse ox on home check today, fevers,
UTI. CXR with mild HF, proBNP 1550. Initially in normal sinus rhythm but went into A-fib with RVR 03/05.
Progress Note - Agriscience Instructor
Subjective
Date of Service: March 08, 2025
No complaints. Off of oxygen
Objective
Labs:
03/08/25 05:16
03/08/25 05:16
Labs
Hgb 12.8 g/dL (13.0-18.0) L 03/08/25 05:16
Hct 38.7 % (39.0-52.0) L 03/08/25 05:16
Plt Count 178 10^3/uL (130-400) 03/08/25 05:16
Sodium 130 mmol/L (135-145) L 03/08/25 05:16
Potassium 3.8 mmol/L (3.5-5.1) 03/08/25 05:16
BUN 21 mg/dl (9-20) H 03/08/25 05:16
Creatinine 0.5 mg/dL (0.7-1.3) L 03/08/25 05:16
Glucose 123 mg/dl (70-99) H 03/08/25 05:16
Troponins
03/05/25
11:36
Troponin I 0.029
Vital Signs and I&O:
Vital Signs
Temp Pulse Resp BP Pulse Ox
98.0 F 87 24 107/70 94
03/08/25 08:00 03/08/25 09:48 03/08/25 09:48 03/08/25 09:48 03/08/25 09:48
Vital Signs
Temp Pulse Resp BP Pulse Ox
98.0 F 87 24 107/70 94
03/08/25 08:00 03/08/25 09:48 03/08/25 09:48 03/08/25 09:48 03/08/25 09:48
Intake & Output
03/06/25 03/07/25 03/08/25 03/09/25
06:59 06:59 06:59 06:59
Intake Total 720 / 720 1680 / 1680 790 / 790 480 / 480
Output Total 1800 / 1800 1974 / 1974 1775 / 1775
Balance -1080 / -1080 -295 / -295 -985 / -985 480 / 480
Physical Exam
Physical Exam
General: Well developed, well nourished in NAD.
Neck: Supple, no JVD, HJR, carotids +2 B/L, no bruits bilaterally.
Heart: Non displaced PMI, irregular, no murmurs, No S3, S4, no rubs.
Lungs: Scattered rhonchi
Extremities: No clubbing, cyanosis or edema bilaterally.
Neuro: Grossly nonfocal, awake, alert and oriented x3.
--- NOTE | 2025-03-08 11:27 | RESPNOTE ---
Patient with orders for nocturnal CPAP use patient may use own equipment. Patient states he is CPAP intolerant and uses oral device instead.
--- NOTE | 2025-03-08 11:49 | W.PN.NEPH.PH ---
Today's Communication / Plan
-
see plan
Assessment/Plan
-
IMP:
Shortness of breath
Acute hypoxic respiratory insufficiency
Acute on chronic HFPEF
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
Recently treated UTI with Hernandez catheter placement early February and removal on 02/21/2025. Follows up with Dr. Cadena as outpatient.
Hyponatremia
Paroxysmal atrial fibrillation
Diabetes-hemoglobin A1c-6.7
Hypertension now hypotension on midodrine
Hyperlipidemia
Hypoalbuminemia
Plan:
A/w sob, after recent d/c from [facility] treated for new afib and CHF, Hernandez for retention
hyponatremia likely multifactorial with CHF but also potentiated by low BPs
wt seem not accurate, CXR better and off O2, suspect DW 90kg
would hold lasix today, likely resume diuresis tomorrow per cards
cortisol was ok and echo noted with normal EF
sodium is better , cont with FR and solute intake
U PCR only 0.1 and not cause of hypoalbuminemia
corrected gogo is normal, vit D level normal
follow ortho vitals and labs
monitor bladder scan off hernandez PVR 230cc, on flomax
d/w pt and primary
-
-
Date of Service: March 08, 2025
CC / HPI / ROS
-
Chief Complaint:
hyponatremia
History of Present Illness:
sodium better at 130
wt no change
BP soft and mild orthostatic
off O2
Review of Systems:
no cp or sob
mild dizzy earlier but fine after
sitting in chair
Labs
-
Labs:
WBC 7.4 10^3/uL (4.8-10.8) 03/08/25 05:16
RBC 4.24 10^6/uL (4.70-6.10) L 12/02/25 05:16
Hgb 12.8 g/dL (13.0-18.0) L 03/08/25 05:16
Hct 38.7 % (39.0-52.0) L 03/08/25 05:16
Plt Count 178 10^3/uL (130-400) 03/08/25 05:16
Sodium 130 mmol/L (135-145) L 03/08/25 05:16
Potassium 3.8 mmol/L (3.5-5.1) 03/08/25 05:16
Chloride 101 mmol/L (98-107) 03/08/25 05:16
Carbon Dioxide 30 mmol/L (22-30) 03/08/25 05:16
BUN 21 mg/dl (9-20) H 03/08/25 05:16
Creatinine 0.5 mg/dL (0.7-1.3) L 03/08/25 05:16
eGFR > 60.00 03/08/25 05:16
Glucose 123 mg/dl (70-99) H 03/08/25 05:16
Calcium 7.4 mg/dl (8.4-10.2) L 03/08/25 05:16
Lwk-G-Csoqfumwyam Pept 1150 pg/ml 03/07/25 04:07
Albumin 2.4 g/dl (3.5-5.0) L 03/07/25 04:07
Physical Exam
-
Vital Signs:
Vital Signs
Temp Pulse Resp BP Pulse Ox
98.0 F 87 24 107/70 94
03/08/25 08:00 03/08/25 09:48 03/08/25 09:48 03/08/25 09:48 03/08/25 09:48
Cardiovascular:: Irregular rate and rhythm
Respiratory:: Bilateral: CTA
Lung Excursion:: Normal
Abdomen:: Nontender and Soft
Extremity Edema:: None: Bilateral:
Hernandez Catheter: No
[2025-03-08 12:15] LABS: Glucose - Point of Care 170 mg/dl (70-99)
--- NOTE | 2025-03-08 12:58 | PN.CDI ---
CDI
- -
CDI:
Physician Documentation Request
Admit Date: 03/04/25 13:08
Dear Doctor,
Please review the following and provide your response in the progress notes.
Clinical Indicators:
Pt admitted with Acute heart failure preserved EF Exacerbation/ Fever-tickborne illness-Anaplasma positive-started on doxycycline
03/04 PO 90% on RA, pt placed on 2LNC to 7 L midlow
03/05 Pt on 50% VM PO 93%, 89% on 6LNC, back to 7 Lmidflow
RR 24-35
Clarify which of the following accurately represents the patient's respiratory status:
Acute Hypoxic respiratory failure
Hypoxia only
Other
Additional information for Respiratory Failure:
Recognized criteria for Respiratory Failure (Source: aMry Rodriguez. 2019 February 24.
Documentation tips: Acute Respiratory Failure, The Hospitalist.)
ABGs: (1 or more) Symptoms Please indicate type if known
1. p)2 <60 or RA SPO2 <91% on RA 1. Tachypnea, SOB, dyspnea Hypoxic
2. pCO2 >45 and pH <7.35 2. Use of accessory muscles Hypercapnic
3. pO2 decrease of pCO2 increase by 3. Pallor or cyanosis Hypoxic and Hypercapnic
10 mmHg from baseline if known 4. Anxiety or restlessness Unable to determine
4. P/F Ratio (pO2/FiO2)nless than 300 5. Unable to speak in full sentences
Use of terms such as suspected, likely, concern for, or probable (associated with a specific diagnosis that is being evaluated, monitored, or treated as if it exists) are acceptable and can be coded in the inpatient setting, when documented at the
time of discharge.
Thank you,
Manuela Fan RN, BSN
CDI Specialist
[place] [employer]
Please use your independent medical judgment in providing your response.
[2025-03-08] MEDS: NOVOLOG FLEXPEN-LOW RESISTANCE 1 UNITS SC ×2 (13:06→18:23)
--- NOTE | 2025-03-08 16:47 | CM ---
F/U: Met with Patient who refuses Home PT, wants to continue his Outpatient PT. PLAN: Anticipate Home No Needs.
[2025-03-08 16:58] LABS: Glucose - Point of Care 158 mg/dl (70-99)
[2025-03-08] MEDS: CRESTOR 10 MG PO (18:23)
[2025-03-08] MEDS: FLOMAX 0.4 MG PO (20:05)
--- NOTE | 2025-03-08 21:19 | PTCARENOTE ---
transferred patient to IVU room 2241. Called verbal report to CORRY Bautista. Patient transported with all belongings and chart.
[2025-03-09] VITALS (22 sets, daily range): BP systolic 77–142; BP diastolic 50–117; O2SAT 95; BMI 26.5
[2025-03-09 00:32] LABS: Glucose - Point of Care 125 mg/dl (70-99)
--- NOTE | 2025-03-09 02:21 | PTCARENOTE ---
Received pt from [facility] @ 0038. AAOx3, VSS-- Afib on monitor. Room air. Bed alarm in place for pt safety. High fall risk, discussed calling care team for OOB-- pt verbalizes understanding. Requested all side rails up. Discussed being NPO for
cardioversion in AM. Pt verbalizes understanding. 2L NC on for HS. Plan of care ongoing. Call varela within reach.
[2025-03-09 05:11] LABS: Albumin 2.6 g/dl (3.5-5.0); Blood Urea Nitrogen 22 mg/dl (9-20); Calcium 7.8 mg/dl (8.4-10.2); Carbon Dioxide 29 mmol/L (22-30); Chloride 103 mmol/L (98-107); Estimated Creatinine Clearance 104 ml/min; Glucose 126 mg/dl (70-99); Potassium 4.2 mmol/L (3.5-5.1); Sodium 133 mmol/L (135-145); eGFR > 60.00
[2025-03-09 05:14] LABS: Hematocrit 39.2 % (39.0-52.0); Hemoglobin 12.9 g/dL (13.0-18.0); Mean Corp Hgb Conc. 32.9 g/dL (33.0-37.0); Mean Corpuscular Volume 91.8 fL (80.0-94.0); Platelet Count 251 10^3/uL (130-400); Red Cell Dist. Width 14.0 % (11.5-14.5)
--- NOTE | 2025-03-09 08:11 | W.PN.HOSP.TC ---
Addendum entered and electronically signed by Ana Chino MD 03/09/25 15:41:
Seen and examined the patient. Agree with the resident. Plan formulated together. See changes in my documentation
Echo at [facility] February 2025-LV size normal. Wall thickness normal. EF 60 to 65%. Systolic function is normal. Wall motion is normal. Diastolic function is mildly abnormal consistent with grade 1 relaxation. RV is mildly dilated.
Systolic function is normal. LA moderately dilated. RA mildly dilated. Small septal aneurysm. Mild annular calcification. Trace MR. Mild TR. IVC is dilated. No pericardial effusion
Echo 03/04/2025-normal LV size and function. EF 61% mild to moderate LVH. Normal diastolic function. Normal RV size and function. Moderately dilated LA. Trace TR. PA pressure 35 mmHg.
On examination patient is awake alert oriented
Cardiovascular system S1-S2 irregular
Chest CTA
No pedal edema
# Shortness of breath
Acute hypoxic respiratory insufficiency
COVID negative, influenza negative
Chest x-ray supports CHF- Acute HFPEF- CXR improved.
Intake output charting, daily weights
Weight was 90.7 kg when he was discharged from [facility] now 93.1 kg in the ER . 88.5 KG today. ( Patient should be weighed on a standing scale)
Slightly elevated troponin-nonischemic myocardial injury
Cardiology following
Outpatient burn center nurse is Dr. Vaughan
CHF education
Patient slightly orthostatic-may be overdiuresed but ,he does give a history that he always is very cautious when changing positions may be he has longstanding orthostatic hypotension
Holding diuretics
# Fever-tickborne illness-Anaplasma positive-started on doxycycline
Tick was found from his abdomen and of January
# Recently treated UTI with Hernandez catheter placement early February and removal on 02/21/2025. Follows up with Dr. Cadena as outpatient.
Outpatient cultures with Streptococcus hemolyticus resistant to oxacillin and also tetracyclines
Will defer to infectious disease regarding treatment
Patient was treated with cefuroxime as outpatient and ceftriaxone here.
No more AB per D/W ID as not enough colonies of bacteria to call it a UTI.
Hernandez catheter placed for retention-taken out 03/07/2025 , voiding well.
Continue Flomax
# Hypokalemia-resolved
# Hyponatremia-Holding Lasix
# Paroxysmal atrial fibrillation-continue Eliquis. Does not seem to be on any rate controlling agents as outpatient
Rates are controlled.
Holter monitor outpatient-atrial tachycardia 141 with 6 episodes-28 beats is the max, PACs 5%, PVCs 0.5%. No A-fib
S/P OTTONIEL CV today- in SR
# Diabetes-hemoglobin A1c-6.7
On metformin 500 mg daily as outpatient-continue
Accu-Cheks and sliding scale coverage ordered
# Hypertension amlodipine, lisinopril as outpatient. Hold both as blood pressure soft
# Hyperlipidemia-continue rosuvastatin
# Hypoalbuminemia
# DVT prophylaxis-Eliquis
# CODE STATUS
Discussed with nursing
Discharge tomorrow if OK with cardiology and nephrology
Original Note:
Today's Communication/Plan
-
Cardioversion today
Hold lasix
Monitor BP
Assessment / Plan
Assessment / Plan
Mr. Juan Wood is a 84 yo man with hx paroxysmal atrial fibrillation on Eliquis, HTN, HLD, DM, HFpEF, recent admission to [facility] for urinary retention and recent treatment for UTI presents to the ER with fevers and shortness of breath. He is found
to be in acute heart failure. Tmax 102 night of admission.
CXR105/04/24
1. MODERATE ACUTE INTERSTITIAL CARDIOGENIC PULMONARY EDEMA which appears similar to the prior radiographic examination from 10:31 AM.
2. Moderate cardiomegaly.
3. Mildly decreased bilateral lung volumes.
EKG 03/05/25
-afib with PVCs, left axis deviation
-QTcB 485
Echo at [facility] February 2025
-LV size normal. Wall thickness normal. EF 60 to 65%. Systolic function is normal. Wall motion is normal. Diastolic function is mildly abnormal consistent with grade 1 relaxation. RV is mildly dilated. Systolic function is normal. LA
moderately dilated. RA mildly dilated. Small septal aneurysm. Mild annular calcification. Trace MR. Mild TR. IVC is dilated. No pericardial effusion
Acute heart failure preserved EF Exacerbation
Shortness of breath
Acute hypoxic respiratory insufficiency
-COVID negative, influenza negative
-CXR results above; BNP 1550
-strict I/O NB - 815ml
-daily weights
-appreciate Cardiology consult
-IV Lasix 40mg BID
-Pt is on RA
-(+)hypochromasia, polychromasia
Outpatient burn center nurse is Dr. Vaughan
CHF education
Fever
-recent treatment of UTI; repeat UA with only 6-10 WBC, patient was on Cefuroxime as outpatient
-urine cx - neg
-flu, covid negative
-blood cultures - neg in 48h
-ID consult appreciated
-report of recent tick bite 2 months ago - Tickborne pathogen PCR testing is positive for Anaplasma--> He is on 2 weeks Doxycycline #D3
-blood parasites negative
-for continued tx UTI --> IV Ceftriaxone #D3 d/c
-PT/OT- home health
Urinary Retention - recurrent
Recently treated UTI with Hernandez catheter placement early February and removal on 02/21/2025. Follows up with Dr. Cadena as outpatient
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 ID was notified, colony count low
-Voiding trial - PVR 235ml
-Voiding well- d/c hernandez 03/07/2025
-Continue Flomax
Hyponatremia
-likely hypervolemic
-continue IV Lasix 40mg BID-- -hold lasix untill he is more hemodynamically stable - consider changing to oral Lasix 40 mg daily
-fluid restriction
-Na 127 - wait on samsca per nephro
-Consult nephrology, input appreciated
-check U total protein<5, U Cr: [id number], Protein /Cr 0.1 for albuminuria on UA, serum alb low at 2.4
Paroxysmal atrial fibrillation
-continue Eliquis
Holter monitor outpatient-atrial tachycardia 141 with 6 episodes-28 beats is the max, PACs 5%, PVCs 0.5%.
-Remains in rate controlled atrial fibrillation and on Eliquis
-cardioversion 03/09/2025- try to get in sinus rhythm but could have high risk of recurrent A-fib per cards
-[id number] score 5 (heart failure, hypertension, diabetes, age)
Essential Hypertension
-hold ALLERGIST/PEDIATRIC PULMONOLOGIST amlodipine and Lisinopril for low BP
Hypotension in setting of heart failure and fever
-on 03/05 SBP dropped to 60's
-Continue Midodrine PRN for SBP<90
-Likely from hyponatremia
-Orthostatic hypotension- positive 115/77 supine--> 77/50 standing
-hold on lasix
Obstructive Sleep Apnea
-His O2 sat mid 80s at night
-He has CPAP at home refused wearing it
-He wore oral appliance- feels rested
Hyperlipidemia
-continue rosuvastatin
Diabetes Type II
-Hb A1c-6.7
On metformin 500 mg daily as outpatient
Accu-Cheks and sliding scale coverage ordered
DVT prophylaxis-Eliquis
FULL CODE
Anticipated Discharge: Within 24 hours
Subjective/Interval History
-
Date of Service: March 09, 2025
Last night he used his oral appliance for his ELEAZAR. Today he feels rested. He has been voiding a lot. Overall he is happy about his progress. Today he is scheduled for cardioversion. HE denies CP, SOB, Papitations.
Objective Data
-
Labs:
Laboratory Results
03/09/25
04:15
WBC 7.2
Hgb 12.9 L
Hct 39.2
Plt Count 251 D
Sodium 133 L
Potassium 4.2
Chloride 103
Carbon Dioxide 29
BUN 22 H
Creatinine 0.6 L
Glucose 126 H
Calcium 7.8 L
Vital Signs:
Vital Signs
Temp Pulse Resp BP Pulse Ox
98.0 F 87 18 115/73 93
03/09/25 06:50 03/09/25 06:51 03/09/25 06:50 03/09/25 06:51 03/09/25 06:50
I&O
03/08/25 03/09/25 03/10/25
06:59 06:59 06:59
Intake Total 790 / 790 960 / 960
Output Total 1775 / 1775 1500 / 1500 275 / 275
Balance -985 / -985 -540 / -540 -275 / -275
Review of Systems
-
History Source: Patient
Constitutional: Reports No Symptoms
EENT: Reports No Symptoms Reported
Respiratory: Reports No Symptoms
Cardiac: Reports No Symptoms
Abdomen/GI: Reports No Symptoms
Breast: Reports No Symptoms
Genitourinary: Reports No Symptoms
Musculoskeletal: Reports No Symptoms
Skin: Reports No Symptoms
Neuro: Reports No Symptoms
Endocrine: Reports No Symptoms
Hematologic / Lymphatic: Reports No Symptoms
Allergy / Immunology: Reports No Symptoms
Physical Exam
-
General: Well Developed, Well Nourished and Conversant
HEENT: Normocephalic, Atraumatic and Hearing Impaired
Respiratory: Clear to Auscultation
Cardiac: S1/S2 and Irregular Rhythm
Breast: Deferred by me
GI: Soft, Nontender and Nondistended
Rectal: Deferred by Provider
Genito-urinary: Clear Urine
Musculoskeletal: No Clubbing, No Cyanosis and No Edema
Skin: Warm and Dry
Neuro: AO x 3, No Motor Deficits and No Sensory Deficits
Hematologic / Lymphatic: No Lymphadenopathy
Psych: Calm
[2025-03-09 08:17] LABS: Glucose - Point of Care 112 mg/dl (70-99)
[2025-03-09] MEDS: NOVOLOG FLEXPEN-LOW RESISTANCE SC ×3 (08:17→18:34)
[2025-03-09] MEDS: ELIQUIS 5 MG PO ×2 (08:18→19:46)
[2025-03-09] MEDS: VIBRAMYCIN 100 MG PO ×2 (08:19→19:46)
[2025-03-09] MEDS: GLUCOPHAGE XR EXTENDED RELEASE PO (10:15)
--- NOTE | 2025-03-09 11:06 | W.PN.ID1 ---
Date of Service
Date of Service: March 09, 2025
Today's Communication
Continue doxycycline. Await tentative cardioversion.
Assessment / Plan
Reported fevers
- Inpatient temperatures noted, multiple different sites of acquisition also noted. (Oral, rectal, axillary)
- appear resolved.
CHF
Urinary retention
HTN
DM type II
ELEAZAR
P A-fib
Recommendations:
Tickborne pathogen PCR testing is positive for Anaplasma. Patient reports prior history of tick found on abdomen approximately 2 months ago.
Continue doxycycline (d#3 of 14) in the treatment of Anaplasma, although not sure whether patient may have already cleared his infection. (PCR testing may remain positive even after clearance of infection).
Lyme serology pending
Continue to monitor white count and temperature curve.
����������������������������������������������������������
Chief Complaint
-: Fever
Subjective / Review of Systems
Patient seen and examined. Reports no issues overnight. No difficulty with antibiotics.
Vital Signs / Physical Exam
Vital Signs
Vital Signs
Temp Pulse Resp BP Pulse Ox
98.0 F 94 18 77/50 93
03/09/25 06:50 03/09/25 08:20 03/09/25 06:50 03/09/25 08:20 03/09/25 06:50
Physical Exam
Constitutional: No Acute Distress, Comfortable and Non-toxic
Cardiovascular: S1/S2; Negative S3/S4
Pulmonary: Clear and Non Labored; Negative Rhonchi
Gastrointestinal: Soft, Non Distended and Normal Bowel Sounds
Skin: Negative Rash or Jaundice
Neurological: Awake, Alert and Oriented
Psychological: Calm
Objective Data
Lab Data
Lab Results
03/09/25 04:15
03/09/25 04:15
Estimated Creat Clear 104 ml/min 03/09/25 04:15
Total Bilirubin 1.0 mg/dl (0.2-1.3) 03/04/25 09:52
AST 57 U/L (17-59) 03/04/25 09:52
ALT 38 U/L (0-50) 03/04/25 09:52
Alkaline Phosphatase 54 U/L (38-126) 03/04/25 09:52
Most recent labs reviewed.
Micro Results:
03/04/25 13:34 Blood Culture - Preliminary
Blood/Venous No Growth in 4 days- Final report to follow
03/04/25 12:57 Blood Culture - Preliminary
Blood/Venous No Growth in 4 days- Final report to follow
03/04/25 11:43 Urine Culture - Final
Urine NO GROWTH
03/04/25 14:36 Blood Parasites Smear - Final
Blood/Venous
03/04/25 09:52 Influenza Types A & B (YAHIR) - Final
Nasal Swab Negative for Influenza A & B, NAAT
Negative results must be combined with clinical observations
and patient history.
Nucleic Acid Amplification test (NAAT)performed on the
[employer] platform.
Laboratory Tests
Tickborne pathogen PCR 03/04/25
14:36
A. phagocytophilum (PCR) Detected A
E.chaffeensis DNA (PCR) Not detected
E. ewingii/canis (PCR) Not detected
E. muris-like DNA (PCR) Not detected
Imaging:
03/04/2025 CXR (portable): moderate acute interstitial cardiogenic pulmonary edema which appears similar to prior radiographic examination from earlier in the day. Moderate cardiomegaly. Mildly decreased bilateral lung volumes. No infiltrate
noted.
--- NOTE | 2025-03-09 11:55 | W.PN.NEPH.PH ---
Today's Communication / Plan
-
Follow BMP
Assessment/Plan
-
IMP:
Shortness of breath
Acute hypoxic respiratory insufficiency
Acute on chronic HFPEF
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
Recently treated UTI with Pringle catheter placement early February and removal on 02/21/2025. Follows up with Dr. Cadena as outpatient.
Hyponatremia
Paroxysmal atrial fibrillation
Diabetes-hemoglobin A1c-6.7
Hypertension now hypotension on midodrine
Hyperlipidemia
Hypoalbuminemia
Plan:
Maintain Pringle for retention, eventual voiding trial
Follow BMP
No Samsca required
Hypotension uncertain. Continue midodrine
May need to consider right heart cath as cortisol was appropriate
Eventual cardioversion
-
-
Date of Service: March 09, 2025
CC / HPI / ROS
-
Chief Complaint:
hyponatremia
History of Present Illness:
sodium better at 133
BP remains low on high-dose midodrine
off O2
Remains in atrial fibrillation, rate controlled
Review of Systems:
no cp or sob
Labs
-
Labs:
WBC 7.2 10^3/uL (4.8-10.8) 03/09/25 04:15
RBC 4.27 10^6/uL (4.70-6.10) L 03/09/25 04:15
Hgb 12.9 g/dL (13.0-18.0) L 03/09/25 04:15
Hct 39.2 % (39.0-52.0) 03/09/25 04:15
Plt Count 251 10^3/uL (130-400) D 03/09/25 04:15
Sodium 133 mmol/L (135-145) L 03/09/25 04:15
Potassium 4.2 mmol/L (3.5-5.1) 03/09/25 04:15
Chloride 103 mmol/L (98-107) 03/09/25 04:15
Carbon Dioxide 29 mmol/L (22-30) 03/09/25 04:15
BUN 22 mg/dl (9-20) H 03/09/25 04:15
Creatinine 0.6 mg/dL (0.7-1.3) L 03/09/25 04:15
eGFR > 60.00 03/09/25 04:15
Glucose 126 mg/dl (70-99) H 03/09/25 04:15
Calcium 7.8 mg/dl (8.4-10.2) L 03/09/25 04:15
Lyb-I-Lymihydncmy Pept 1150 pg/ml 03/07/25 04:07
Albumin 2.6 g/dl (3.5-5.0) L 03/09/25 04:15
Physical Exam
-
Vital Signs:
Vital Signs
Temp Pulse Resp BP Pulse Ox
98.0 F 94 18 77/50 93
03/09/25 06:50 03/09/25 08:20 03/09/25 06:50 03/09/25 08:20 03/09/25 06:50
Cardiovascular:: Regular rate and rhythm
Respiratory:: Bilateral: CTA
Lung Excursion:: Normal
Abdomen:: Nontender and Soft
Bowel Sounds:: Normal
Extremity Edema:: None: Bilateral:
--- NOTE | 2025-03-09 13:25 | CM ---
Reviewed chart. Mr. Wood was transferred to IVU. Met with Mr. Vences to review discharge plans. He states he is feeling better. He states prior to admission he resides with his spouse in a one and half story home with one step to enter enter. He
states he has been using a walker here. Prior to admission he was independent with ambulation and adls. He does not have any DME in the home for him. His daughters reside close by and are supportive. Will need to see his current functional level
to see ifhe will have any skilled care needs. Medical work-up in progress. The discharge plan is to return home with [facility] if indicted and he is agreeable verses SNF/Rehab. if agreeable and indicated when medically stable.
[2025-03-09 13:33] LABS: Glucose - Point of Care 118 mg/dl (70-99)
--- NOTE | 2025-03-09 13:44 | PTCARENOTE ---
Pt is AOx3, no complaints of pain or discomfort. Assist x1 OOB with walker. +ortho BP this AM, medications given as ordered. Pt went for OTTONIEL/CV this today. Afib on tele monitor. Bed alarm on and audible. Call varela within reach.
1315 - Received back from vat house laborer, no complaints at this time. SR w/1st degree HB on tele.
--- NOTE | 2025-03-09 15:41 | W.PN.CARDCBS ---
Addendum entered and electronically signed by Alvaro Cortez MD 03/09/25 16:10:
I saw and examined the patient.
The TEAM LEAD or PA's note was reviewed and I agree with the note.
Comment: General: Well developed, well nourished in NAD.
Neck: Supple, no JVD, HJR, carotids +2 B/L, no bruits bilaterally.
Heart: Non displaced PMI, irregular, no murmurs, No S3, S4, no rubs.
Lungs: Scattered rhonchi
Extremities: No clubbing, cyanosis or edema bilaterally.
Neuro: Grossly nonfocal, awake, alert and oriented x3.
He underwent cardioversion to sinus rhythm. Will add amiodarone and attempt to keep in sinus rhythm. Follow QT with amiodarone. He remains orthostatic. Will hold Flomax. Discussed with nursing.
Original Note:
Today's Communication / Plan
-
hold flomax
add compression stockings
add amiodarone 200mg BID as back in SR s/p CV
repeat EKG in AM to follow QTc
follow ortho VS
wean midodrine as able
Impression / Plan
-
PCP: Robin Cordova
Primary glue mill operator: Aleksey Vaughan
Impression:
Acute heart failure preserved EF
UTI
fevers
Hypotension, requiring midodrine
Paroxysmal atrial fibrillation
Hypertension
Hyperlipidemia
Type 2 diabetes
Obstructive sleep apnea
BPH
Previous cardiovascular testing:
Echo 03/05/2025: Normal LV/RV size and function, LVEF 61%, trace TR, PASP 35 mmHg
-Echocardiogram 02/09/2025 (at [place]): EF 60 to 65%, wall motion normal, RV mildly dilated with normal function, mild TR
-7-day CAM monitor 02/15/2025: Normal sinus rhythm average heart rate 76, Range 50-105bpm, no A-fib, 1418 episodes of atrial tachycardia, longest 28 beats, fastest 6 beats at 130 bpm
-Exercise nuclear stress test 06/28/2022: 7 minutes on Joni protocol achieving 7.7 METS, no ischemia or infarct noted on perfusion imaging
Plan:
- Patient presented with shortness of breath, with concern for acute heart failure. proBNP 1550 on arrival, diuresed, and repeat proBNP improved to 1150.
- Also with recurrence of PAF. Patient had recently been admitted to [facility] due to urinary complaints, however noted to be in heart failure and with A-fib at that time. Patient relates that reportedly due to his urinary issues (urinating 12-13 times
per night), plan was for conservative management of his atrial fibrillation until he was seen by urology. He was unclear if he was started on anything, however he says Flomax sounds familiar. He is noted to be on flomax 0.4mg HS as OP as well as
since admission. Will confirm if this is a new medication for patient as he is currently having issues with orthostasis. Prior to admission was taking lisinopril 40 mg daily and Norvasc 10 mg daily, however both are now on hold and he is requiring
midodrine 10 mg 3 times daily. Will hold Flomax. will add compression stockings.
- This admission was noted to be back in atrial fibrillation, rate controlled and underwent successful OTTONIEL/cardioversion 03/09/2025
- As A-fib is recurrent, would favor initiation of amiodarone therapy 200mg BID to maintain sinus rhythm. rate control options limited due to present orthostasis
- will attempt to wean midodrine
- Continue Eliquis
- Nephrology following for hyponatremia, which may be from diuresis
- OP cardiac follow up with ATC
- d/w granddaughter via telephone and updated
PREADMIT DATA:
84-year-old male w/ PMH HTN type 2 DM, ELEAZAR, recent diagnosis of paroxysmal atrial fibrillation and heart failure preserved EF presents to [facility] ED w/ one week h/o increasing shortness of breath with exertion, low pulse ox on home check today, fevers,
UTI. CXR with mild HF, proBNP 1550. Initially in normal sinus rhythm but went into A-fib with RVR 03/05.
Progress Note - Product Marketing Intern
Subjective
Date of Service: March 09, 2025
feeling well. reports some dizziness earlier today
Objective
Labs:
03/09/25 04:15
03/09/25 04:15
Labs
Hgb 12.9 g/dL (13.0-18.0) L 03/09/25 04:15
Hct 39.2 % (39.0-52.0) 03/09/25 04:15
Plt Count 251 10^3/uL (130-400) D 03/09/25 04:15
Sodium 133 mmol/L (135-145) L 03/09/25 04:15
Potassium 4.2 mmol/L (3.5-5.1) 03/09/25 04:15
BUN 22 mg/dl (9-20) H 03/09/25 04:15
Creatinine 0.6 mg/dL (0.7-1.3) L 03/09/25 04:15
Glucose 126 mg/dl (70-99) H 03/09/25 04:15
Vital Signs and I&O:
Vital Signs
Temp Pulse Resp BP Pulse Ox
98.2 F 73 18 126/73 94
03/09/25 13:18 03/09/25 15:00 03/09/25 13:18 03/09/25 15:00 03/09/25 13:18
Vital Signs
Temp Pulse Resp BP Pulse Ox
98.2 F 73 18 126/73 94
03/09/25 13:18 03/09/25 15:00 03/09/25 13:18 03/09/25 15:00 03/09/25 13:18
Intake & Output
03/07/25 03/08/25 03/09/25 03/10/25
07:59 07:59 07:59 07:59
Intake Total 1680 / 1680 790 / 790 960 / 960
Output Total 2074 1675 / 167 1500 / 1500 475 / 475
Balance -395 / -395 -885 / -885 -540 / -540 -475 / -475
Physical Exam
Physical Exam
GEN: No distress, awake, alert, oriented x3
HEENT: supple, anicteric, mmm, EOMI
LUNGS: CTA bilaterally, no wheezes/rales
CV: Reg, S1/S2, no murmur
ABD: soft, BS+, NT/ND
EXT: No cyanosis, clubbing, edema
NEURO: Gross non-focal
SKIN: Warm, pink, dry. No rash
[2025-03-09] MEDS: CRESTOR 10 MG PO (18:34)
[2025-03-09 18:38] LABS: Glucose - Point of Care 136 mg/dl (70-99)
[2025-03-09] MEDS: PACERONE 200 MG PO (19:46)
--- NOTE | 2025-03-09 21:59 | PTCARENOTE ---
Received pt @ change of shift. OOB in chair, AAOx3, VSS-- NSR on monitor. Discussed EKG, labs and standing scale weight to be done in the AM. Pt verbalizes understanding. Plan of care ongoing. Call varela within reach.
[2025-03-09 22:10] LABS: Glucose - Point of Care 123 mg/dl (70-99)
--- NOTE | 2025-03-09 23:00 | PTCARENOTE ---
report received from previous RN, walking rounds done. pt in bed, sleeping. VSS. NSR on monitor, HR 70s-80s. POX 95% on room air. PIV intact and patent. see worklist for full assessment, VS, and interventions.
[2025-03-10] VITALS (14 sets, daily range): BP systolic 116–146; BP diastolic 73–89; PULSE 68–90; O2SAT 95; BMI 26.5
[2025-03-10 02:20] LABS: Hematocrit 35.9 % (39.0-52.0); Hemoglobin 12.0 g/dL (13.0-18.0); Mean Corp Hgb Conc. 33.4 g/dL (33.0-37.0); Mean Corpuscular Volume 93.0 fL (80.0-94.0); Platelet Count 286 10^3/uL (130-400); Red Cell Dist. Width 14.1 % (11.5-14.5)
[2025-03-10 02:54] LABS: Blood Urea Nitrogen 26 mg/dl (9-20); Calcium 7.9 mg/dl (8.4-10.2); Carbon Dioxide 27 mmol/L (22-30); Chloride 106 mmol/L (98-107); Estimated Creatinine Clearance 89 ml/min; Glucose 118 mg/dl (70-99); Potassium 4.3 mmol/L (3.5-5.1); Sodium 135 mmol/L (135-145); eGFR > 60.00
--- NOTE | 2025-03-10 06:56 | W.PN.HOSP.TC ---
Addendum entered and electronically signed by Ana Chino MD 03/10/25 13:01:
I saw and evaluated the patient. I reviewed the resident�s note and agree with findings and plan as documented in the resident�s note.
Patient was feeling good he was sitting in a chair when I saw him earlier today. No dizziness or shortness of breath
Cardiovascular system S1-S2 regular
Chest clear to auscultation
No pedal edema
Sodium has corrected with holding Lasix
Probably over diuresed
Patient will be discharged on Bumex Friday dose and restart Flomax
Hold amlodipine, lisinopril for discharge
Continue midodrine for now
Continue Eliquis
Patient continues with his oral device for sleep apnea
Discussed with cardiology
Reached out to patient's granddaughter who works with cardiology group
Discussed with nursing
Seen by PT OT
Patient is okay for discharge
More than 30 minutes spent in discharge including
Final examination of the patient
Summarizing hospital stay
Instructions for continuing care to all relevant caregivers
Preparation of discharge records, prescriptions, and referral forms
Original Note:
Today's Communication/Plan
-
Discharge today
Follow-up to ATC
BMP 1 week
Assessment / Plan
Assessment / Plan
Mr. Juan Wood is a 84 yo man with hx paroxysmal atrial fibrillation on Eliquis, HTN, HLD, DM, HFpEF, recent admission to [facility] for urinary retention and recent treatment for UTI presents to the ER with fevers and shortness of breath. He is found
to be in acute heart failure. Tmax 102 night of admission.
CXR105/04/24
1. MODERATE ACUTE INTERSTITIAL CARDIOGENIC PULMONARY EDEMA which appears similar to the prior radiographic examination from 10:31 AM.
2. Moderate cardiomegaly.
3. Mildly decreased bilateral lung volumes.
EKG 03/05/25
-afib with PVCs, left axis deviation
-QTcB 485
Echo at [facility] February 2025
-LV size normal. Wall thickness normal. EF 60 to 65%. Systolic function is normal. Wall motion is normal. Diastolic function is mildly abnormal consistent with grade 1 relaxation. RV is mildly dilated. Systolic function is normal. LA
moderately dilated. RA mildly dilated. Small septal aneurysm. Mild annular calcification. Trace MR. Mild TR. IVC is dilated. No pericardial effusion
Holter monitor outpatient-atrial tachycardia 141 with 6 episodes-28 beats is the max, PACs 5%, PVCs 0.5%.
Cardioversion 03/08/2025
- A OTTONIEL was performed prior to rule out left atrial appendage thrombus. No thrombus was identified.
- An initial shock of 200 joules synchronized was delivered. The patient remained in atrial fibrillation. A 2nd shock of 300 joules synchronized was delivered. The patient converted to sinus rhythm.
- He will continue Eliquis for anticoagulation.
Acute heart failure preserved EF Exacerbation
Shortness of breath
Acute hypoxic respiratory insufficiency
-COVID negative, influenza negative
-CXR results above; BNP 1550
-strict I/O
-daily weights
-appreciate Cardiology consult
-Pt is on RA
-(+)hypochromasia, polychromasia
Outpatient pipe washer is Dr. Vaughan
Fever
-recent treatment of UTI; repeat UA with only 6-10 WBC, patient was on Cefuroxime as outpatient
-urine cx - neg
-flu, covid negative
-blood cultures - neg in 48h
-ID consult appreciated
-report of recent tick bite 2 months ago - Tickborne pathogen PCR testing is positive for Anaplasma--> He is on 2 weeks Doxycycline #D4
-blood parasites negative
-for continued tx UTI --> IV Ceftriaxone #D3 d/c
-PT/OT- home health
-fever- resolved
Urinary Retention - recurrent
Recently treated UTI with Hernandez catheter placement early February and removal on 02/21/2025. Follows up with Dr. Cadena as outpatient
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 ID was notified, colony count low
-Voiding trial - PVR 235ml
-Voiding well- d/c hernandez 03/07/2025
-Continue Flomax
Hyponatremia
-likely hypervolemic
-continue IV Lasix 40mg BID-- -hold lasix untill he is more hemodynamically stable - consider changing to oral Lasix 40 mg daily once stable
-fluid restriction
-Na 127 - wait on samsca per nephro
-Consult nephrology, input appreciated
-check U total protein<5, U Cr: 13734, Protein /Cr 0.1 for albuminuria on UA, serum alb low at 2.4
Paroxysmal atrial fibrillation
-continue Eliquis
-cardioversion 03/09/2025 - sinus rhythm- Continue Amiodarone 200 mg BID/4 weeks then decrease to 200 mg QD
-can not use rate control agents due to hypotension
-check QTc on ECG - 478ms
-[id number] score 5 (heart failure, hypertension, diabetes, age)
Essential Hypertension
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
Hypotension in setting of heart failure and fever
-on 03/05 SBP dropped to 60's - likely from lasix use, hyponatremia
-Continue midodrine 5 mg TID with hold parameters for SBP> 110, goal wean off in next 1 to 2 weeks
-Orthostatic hypotension- positive 115/77 supine--> 77/50 standing
-Recheck Orthostatics - neg
-hold lasix
-hold flomax If BP remain stable this AM -->resume Flomax tonight
-OP Norvasc and lisinopril on hold - reassess BP at cardiology office visit next week
-rec compression stockings
Obstructive Sleep Apnea
-His O2 sat mid 80s at night
-He has CPAP at home refused wearing it
-He wore oral appliance- feels rested
Hyperlipidemia
-continue rosuvastatin
Diabetes Type II
-Hb A1c-6.7
On metformin 500 mg daily as outpatient
Accu-Cheks and sliding scale coverage ordered
BPH
DVT prophylaxis-Eliquis
FULL CODE
Anticipated Discharge: Today
Subjective/Interval History
-
Date of Service: March 10, 2025
He is comfortable sitting on the chair. He has been urinating without any difficulty. He denies chest pain, palpitations, lightheadedness.
Objective Data
-
Labs:
Laboratory Results
03/10/25
02:02
WBC 6.2
Hgb 12.0 L
Hct 35.9 L
Plt Count 286
Sodium 135
Potassium 4.3
Chloride 106
Carbon Dioxide 27
BUN 26 H
Creatinine 0.7
Glucose 118 H
Calcium 7.9 L
Vital Signs:
Vital Signs
Temp Pulse Resp BP Pulse Ox
97.5 F 66 20 134/78 93
03/10/25 06:45 03/10/25 04:00 03/10/25 06:45 03/10/25 01:50 03/10/25 06:45
I&O
03/08/25 03/09/25 03/10/25
06:59 06:59 06:59
Intake Total 790 / 790 960 / 960 480 / 480
Output Total 1775 / 1775 1500 / 1500 1025 / 1025
Balance -985 / -985 -540 / -540 -545 / -545
Review of Systems
-
History Source: Patient
Constitutional: Reports No Symptoms
EENT: Reports No Symptoms Reported
Respiratory: Reports No Symptoms
Cardiac: Reports No Symptoms
Abdomen/GI: Reports No Symptoms
Breast: Reports No Symptoms
Genitourinary: Reports No Symptoms
Musculoskeletal: Reports No Symptoms
Skin: Reports No Symptoms
Neuro: Reports No Symptoms
Endocrine: Reports No Symptoms
Hematologic / Lymphatic: Reports No Symptoms
Allergy / Immunology: Reports No Symptoms
Physical Exam
-
General: Well Developed, Well Nourished and Conversant
HEENT: Normocephalic, Atraumatic and Hearing Impaired
Respiratory: Clear to Auscultation
Cardiac: Regular Rhythm and S1/S2
Breast: Deferred by me
GI: Soft, Nontender and Nondistended
Rectal: Deferred by Provider
Genito-urinary: Clear Urine
Musculoskeletal: No Clubbing, No Cyanosis and No Edema
Skin: Warm and Dry
Neuro: AO x 3, No Motor Deficits and No Sensory Deficits
Hematologic / Lymphatic: No Lymphadenopathy
Psych: Calm
[2025-03-10 08:02] LABS: Glucose - Point of Care 131 mg/dl (70-99)
[2025-03-10] MEDS: NOVOLOG FLEXPEN-LOW RESISTANCE SC ×3 (08:23→16:42)
[2025-03-10] MEDS: VIBRAMYCIN 100 MG PO (08:51)
[2025-03-10] MEDS: ELIQUIS 5 MG PO (08:52)
[2025-03-10] MEDS: PACERONE 200 MG PO (08:52)
[2025-03-10] MEDS: GLUCOPHAGE XR EXTENDED RELEASE 500 MG PO (08:52)
[2025-03-10] MEDS: MIRALAX 17 GRAMS PO (08:52)
--- NOTE | 2025-03-10 08:58 | W.PN.CARDCBS ---
Addendum entered and electronically signed by Lorenzo Cool MD 03/10/25 10:51:
Patient interviewed and examined. Pertinent notes reviewed.
Note of Shelia Bowei reviewed in detail, agree with findings unless otherwise specified.
Patient feels very well.
Current meds: Tamsulosin on hold, apixaban 5 mg twice daily, rosuvastatin 10 mg a day, metformin, furosemide 40 IV twice daily on hold, doxycycline 100 twice daily, amiodarone 200 twice daily, midodrine 5 mg 3 times daily
134/80, Pulse 84 respiratory rate 20
ECG: Sinus rhythm left axis
He is in sinus rhythm. Lungs are clear, regular rate rhythm no edema JVD okay, no obvious murmurs
Telemetry normal sinus rhythm after cardioversion and amiodarone
Impression:
PAF, Anaplasma, orthostasis, UTI, hyponatremia, hypertension, hyperlipidemia, type 2 diabetes, sleep apnea, BPH
Anaplasma, orthostasis, hyponatremia
Plan:
Okay for discharge from cardiac standpoint.
Follow-up to ATC
BMP 1 week
Recommended cardiac meds at discharge:
Amiodarone 200 mg twice daily x 4 weeks then 200 mg a day
Apixaban 5 mg twice daily
Bumex 0.5 mg MWF
Midodrine 5 mg 3 times daily and reassess as outpatient
Rosuvastatin 10 mg at bedtime
Tamsulosin 0.4 mg at bedtime
Hold amlodipine
Hold lisinopril
Original Note:
Today's Communication / Plan
-
Continue midodrine 5 mg 3 times daily with hold parameters for systolic blood pressure greater than 110, hopefully can wean off in next 1 to 2 weeks
If blood pressures remain stable this morning, will resume Flomax tonight as this is chronic medication for patient and has ongoing urinary issues, to be seen by urology next week
Would favor placing back on Bumex 0.5 mg Friday and following daily weights
Hold outpatient Norvasc and lisinopril for now, with reassessment of blood pressure at office visit next week and hopefully can restart
In sinus rhythm overnight. Continue Amio 200 mg twice daily for 4 weeks then decrease to 200 mg daily
continue eliquis
BMP/proBNP in 1 week
Outpatient follow-up with ATC
Will plan for discharge later today
Impression / Plan
-
PCP: Robin Cordova
Primary desk lieutenant: Aleksey Vaughan
Impression:
Acute heart failure preserved EF
UTI
fevers
Hypotension, requiring midodrine
Paroxysmal atrial fibrillation
Hypertension
Hyperlipidemia
Type 2 diabetes
Obstructive sleep apnea
BPH
Anaplasmosis
Previous cardiovascular testing:
Echo 03/05/2025: Normal LV/RV size and function, LVEF 61%, trace TR, PASP 35 mmHg
-Echocardiogram 02/09/2025 (at [place]): EF 60 to 65%, wall motion normal, RV mildly dilated with normal function, mild TR
-7-day CAM monitor 02/15/2025: Normal sinus rhythm average heart rate 76, Range 50-105bpm, no A-fib, 1418 episodes of atrial tachycardia, longest 28 beats, fastest 6 beats at 130 bpm
-Exercise nuclear stress test 06/28/2022: 7 minutes on Joni protocol achieving 7.7 METS, no ischemia or infarct noted on perfusion imaging
Plan:
- Patient presented with shortness of breath, with concern for acute heart failure. proBNP 1550 on arrival, diuresed, and repeat proBNP improved to 1150. he reports a dry weight at home of ~200 pounds and by our scale is currently 194 pounds. he was
on bumex 0.5mg MWF prior to admission and given issues with suspected overdiuresis and orthostasis requiring midodrine as well as now being back in SR and hopefully maintaining on amiodarone, would favor DC on po bumex 0.5mg MWF as before.
- Sodium is improving, hyponatremia suspected secondary to overdiuresis
- BMP/proBNP in 1 week
- Also with recurrence of PAF this admission. Patient had recently been admitted to [facility] due to urinary complaints, however noted to be in heart failure and with A-fib at that time. Patient relates that reportedly due to his urinary issues
(urinating 12-13 times per night), plan was for conservative management of his atrial fibrillation until he was seen by urology.
- He underwent OTTONIEL/cardioversion on 03/09/2025. There has been some improvement in his blood pressure since cardioversion
- He was started on amiodarone 200 mg twice daily for PAF, to continue for 4 weeks upon discharge and then decrease to 200 mg daily. Has maintained sinus rhythm on review of telemetry overnight, occasional PVCs at times in pattern of bigeminy noted
- K stable. Check mag
- Continue Eliquis
- Flomax was held last night due to orthostasis. Confirmed with granddaughter 03/09 that Flomax is not a new medication for this patient. If blood pressures continue to improve, would discharge back on Flomax and low-dose midodrine for now. He has
a blood pressure cuff at home and can check regularly. If blood pressures noted to be persistently greater than 130 systolic, would stop midodrine
- His outpatient lisinopril 40 mg daily and Norvasc 10 mg daily presently remain on hold. If as outpatient his blood pressures are noted to be uptrending, would resume within next several weeks
- Continue compression stockings
- on doxycycline for anaplasmosis per ID
- OP cardiac follow up with ATC to be arranged
- Ambulate
- For possible DC to home later today
- Will update granddaughter
- d/w nursing
PREADMIT DATA:
84-year-old male w/ PMH HTN type 2 DM, ELEAZAR, recent diagnosis of paroxysmal atrial fibrillation and heart failure preserved EF presents to [facility] ED w/ one week h/o increasing shortness of breath with exertion, low pulse ox on home check today, fevers,
UTI. CXR with mild HF, proBNP 1550. Initially in normal sinus rhythm but went into A-fib with RVR 03/05.
Progress Note - Shore Worker
Subjective
Date of Service: March 10, 2025
No dizziness overnight. States slept well. No chest pain, shortness of breath, palpitations
Objective
Labs:
03/10/25 02:02
03/10/25 02:02
Labs
Hgb 12.0 g/dL (13.0-18.0) L 03/10/25 02:02
Hct 35.9 % (39.0-52.0) L 03/10/25 02:02
Plt Count 286 10^3/uL (130-400) 03/10/25 02:02
Sodium 135 mmol/L (135-145) 03/10/25 02:02
Potassium 4.3 mmol/L (3.5-5.1) 03/10/25 02:02
BUN 26 mg/dl (9-20) H 03/10/25 02:02
Creatinine 0.7 mg/dL (0.7-1.3) 03/10/25 02:02
Glucose 118 mg/dl (70-99) H 03/10/25 02:02
Vital Signs and I&O:
Vital Signs
Temp Pulse Resp BP Pulse Ox
97.5 F 84 20 134/80 93
03/10/25 06:45 03/10/25 08:00 03/10/25 06:45 03/10/25 08:52 03/10/25 06:45
Vital Signs
Temp Pulse Resp BP Pulse Ox
97.5 F 84 20 134/80 93
03/10/25 06:45 03/10/25 08:00 03/10/25 06:45 03/10/25 08:52 03/10/25 06:45
Intake & Output
03/08/25 03/09/25 03/10/25 03/11/25
07:59 07:59 07:59 07:59
Intake Total 790 / 790 960 / 960 480 / 480
Output Total 1675 / 1675 1500 / 1500 1025 / 1025
Balance -885 / -885 -540 / -540 -545 / -545
Physical Exam
Physical Exam
GEN: No distress, awake, alert, oriented x3. Sitting in chair
HEENT: supple, anicteric, mmm, EOMI
LUNGS: CTA bilaterally, no wheezes/rales
CV: Reg, S1/S2, no murmur
ABD: soft, BS+, NT/ND
EXT: No cyanosis, clubbing, edema
NEURO: Gross non-focal
SKIN: Warm, pink, dry. No rash
[2025-03-10 09:33] LABS: Magnesium 2.3 mg/dl (1.6-2.3)
[2025-03-10 11:47] LABS: Glucose - Point of Care 105 mg/dl (70-99)
--- NOTE | 2025-03-10 12:47 | W.DCSUMMARY ---
Addendum entered and electronically signed by Ana Chino MD 03/10/25 17:32:
Read, reviewed, and agree. See same day progress note for additional details.
Original Note:
Discharge Summary
Discharge Data
Date of Admission: 03/04/25
Date of Discharge: 03/10/25
-
Pending Results: Yes
Additional Pending Results:
Lyme screen IgG and IgM
Hospital Course
Discharging Physician : Dr. Sanju Carson, Dr. Ana Chino
Disposition : Home
Primary care physician : Robin Cordova
Principal Discharge diagnosis :
Paroxysmal atrial fibrillation
Acute heart failure preserved EF Exacerbation
Acute hypoxic respiratory insufficiency
Fever secondary to Urinary tract infection vs Anaplasma
Urinary retention
Hyponatremia
Orthostatic hypotension
Chronic Discharge diagnosis :
Essential Hypertension
Obstructive Sleep Apnea
Hyperlipidemia
Diabetes Type II
Benign prostatic hyperplasia
Hospital Course :
Mr. Juan Wood is a 84 y/o male with a h paroxysmal atrial fibrillation on Eliquis, HTN, HLD, DM, HFpEF, recent admission to [facility] for urinary retention and recent treatment for UTI presented to ER on 03/04/2025 with fevers and shortness of
breath. On evaluation, patient noted to have abnormal proBNP at 1550 with chest x-ray demonstrating pulmonary edema. He is found to be in acute heart failure. He received diuretics. His symptoms improved. His hospital course was complicated by
hyponatremia, hypotension. Hyponatremia resolved. He is being discharged on prn midodrine to support his BP. For now Lisinopril, amlodipine are on hold due to hypotension.
For Paroxysmal atrial fibrillation he had cardioversion on 03/09/2025. His rate is back to sinus rhythm.
As an outpatient he followed with Urology, and the Hernandez catheter was discontinued after approximately 10 days. Thereafter, he had episodes of increased urinary frequency and was recently placed on a course of cefuroxime. His hernandez catheter was
removed at the hospital and he was treated for UTI. On a bladder sacen his PVR was wnl. His urinary output improved.
Additionally he had a hx of a tick bite in January. His Lyme panel is still pending. He is positive for Anaplasma. He was started on 2 weeks of Doxycycline.
Recommendations
Continue amiodarone 200mg twice daily for 4 weeks then decrease to 200mg daily!
Stop norvasc and lisinopril
If you are noticing that systolic blood pressures (top number) is persistently greater than 130, please call Dr. Vaughan as likely can stop midodrine and may be able to reintroduce blood pressure medicines.
Please follow up with ATC within 2 weeks
Please follow up with your PCP within a week
Please get a bloodwork in a week
Continue taking doxycycline antibiotic for Anaplasma( tickborne illness) for 10 more days
Important imaging findings :
CXR105/04/24
1. MODERATE ACUTE INTERSTITIAL CARDIOGENIC PULMONARY EDEMA which appears similar to the prior radiographic examination
2. Moderate cardiomegaly.
3. Mildly decreased bilateral lung volumes.
EKG 03/05/25
-afib with PVCs, left axis deviation
-QTcB 485
Echo at [facility] February 2025
-LV size normal. Wall thickness normal. EF 60 to 65%. Systolic function is normal. Wall motion is normal. Diastolic function is mildly abnormal consistent with grade 1 relaxation. RV is mildly dilated. Systolic function is normal. LA
moderately dilated. RA mildly dilated. Small septal aneurysm. Mild annular calcification. Trace MR. Mild TR. IVC is dilated. No pericardial effusion
Procedure findings :
Cardioversion 03/08/2025
- A OTTONIEL was performed prior to rule out left atrial appendage thrombus. No thrombus was identified.
- An initial shock of 200 joules synchronized was delivered. The patient remained in atrial fibrillation. A 2nd shock of 300 joules synchronized was delivered. The patient converted to sinus rhythm.
- He will continue Eliquis for anticoagulation.
Discharge Plan
-
Patient Disposition: Home (Routine Discharge)
Discharge Diagnosis/Procedures: Paroxysmal atrial fibrillation
Acute heart failure preserved EF Exacerbation
Acute hypoxic respiratory insufficiency
Fever secondary to Urinary tract infection vs Anaplasma
Urinary retention
Hyponatremia
Essential Hypertension
Orthostatic hypotension
Obstructive Sleep Apnea
Hyperlipidemia
Diabetes Type II
Benign prostatic hyperplasia
Condition: Good
Diet: 2 Gram Sodium and Restrict fluids to 64 oz
Activity: As tolerated
Driving Restrictions: As prior to admission
Bathing Restrictions: None
Blood Work: BMP/proBNP in 1 week . thyroid function test in. 6 to 8 weeks
Others Tests: Chest x-ray 3 to 6 months while on amiodarone
Other Services: PT
Specialty Instructions: Weigh Daily- Call MD for wt gain/loss 3 lbs overnight/5 lbs in 1 week
Instructions: *PCP/Other Technology Project Manager Heart Failure Instructions
Referrals:
[facility] [Outside]
Alyse Vaughan MD [Affiliate, Cardiology] - 03/24/25 11:00 am
Referral Note: Please call with questions
Robin Cordova MD [Family Provider, Family Practice]
Additional Discharge Medication Instructions: Continue amiodarone 200mg twice daily for 4 weeks then decrease to 200mg daily!
Stop norvasc and lisinopril
If you are noticing that systolic blood pressures (top number) is persistently greater than 130, please call Dr. Vaughan as likely can stop midodrine and may be able to reintroduce blood pressure medicines.
Please follow up with ATC within 2 weeks
Please follow up with your PCP within a week
Please get a bloodwork in a week
Continue taking doxycycline antibiotic for Anaplasma( tickborne illness) for 10 more days
Prescriptions:
New
doxycycline hyclate 100 mg Capsule
100 mg PO BID Qty: 20 0RF
midodrine 5 mg Tablet
5 mg PO TID@0800,1300,1800 Qty: 21 0RF
amiodarone 200 mg tablet
200 mg PO BID Qty: 60 0RF
Continued
tamsulosin 0.4 mg Capsule
0.4 mg PO HS
bumetanide 0.5 mg Tablet
0.5 mg PO MOWEFR
rosuvastatin 10 mg Tablet
10 mg PO QPM
PreserVision AREDS 2,148 mcg-113 mg-45 mg-17.4mg Tablet
1 tab PO BID
coQ10 (ubiquinol) [Qunol Charlie CoQ10] 100 mg Capsule
100 mg PO DAILY
Eliquis 5 mg Tablet
5 mg PO BID
polyethylene glycol 3350 [Miralax] 17 gram Powder In Packet
17 g PO DAILYPRN PRN (Reason: constipation)
metformin 500 mg Tablet Extended Release 24 Hr
500 mg PO DAILY
Discontinued
amlodipine 10 mg Tablet
10 mg PO DAILY
lisinopril 40 mg Tablet
40 mg PO DAILY
acetaminophen [Tylenol Extra Strength] 500 mg Tablet
1,000 mg PO TIDPRN PRN (Reason: mild pain)
Discharge Orders:
Discharge Patient (As Directed); Ordered 03/10/25
Ordered By: Ana Chino
Care Plan Goals
Care Plan Goals:
Problem: Readiness for enhanced knowledge related to diagnosis and treatment plan
Goal: Understand your diagnosis and treatment plan needs, including medications if applicable.
Instructions: Know your diagnosis, underlying causes and treatment plan options, including medications if applicable. Consult with your health care team to learn about your diagnosis and treatment plan, including medications if applicable.
Discharge Date and Time
Print Language: MOLDOVAN
--- NOTE | 2025-03-10 12:53 | W.PN.ID1 ---
Date of Service
Date of Service: March 10, 2025
Today's Communication
Continue current course of doxycycline.
Assessment / Plan
Reported fevers
- Inpatient temperatures noted, multiple different sites of acquisition also noted. (Oral, rectal, axillary)
- appear resolved.
CHF
Urinary retention
HTN
DM type II
ELEAZAR
P A-fib
Recommendations:
Tickborne pathogen PCR testing is positive for Anaplasma. Patient reports prior history of tick found on abdomen approximately 2 months ago.
Continue doxycycline (d#4 of 14) in the treatment of Anaplasma, although patient may have already cleared his infection as PCR testing may remain positive even after clearance of infection.
Lyme serology pending, although even if positive, patient will have completed an appropriate course of therapy with Doxy.
Little more to offer from a Infectious Disease standpoint.
Will see again at your request.
����������������������������������������������������������
Chief Complaint
-: Fever
Subjective / Review of Systems
Review of Systems: No Fever and No Chills
Vital Signs / Physical Exam
Vital Signs
Vital Signs
Temp Pulse Resp BP Pulse Ox
97.9 F 77 20 126/85 96
03/10/25 11:03 03/10/25 12:19 03/10/25 11:03 03/10/25 12:19 03/10/25 11:27
Physical Exam
Constitutional: No Acute Distress, Comfortable and Non-toxic
Cardiovascular: S1/S2; Negative S3/S4
Pulmonary: Clear and Non Labored; Negative Rhonchi
Gastrointestinal: Soft, Non Distended and Normal Bowel Sounds
Skin: Negative Rash or Jaundice
Neurological: Awake, Alert and Oriented
Psychological: Calm
Objective Data
Lab Data
Lab Results
03/10/25 02:02
03/10/25 02:02
Estimated Creat Clear 89 ml/min 03/10/25 02:02
Total Bilirubin 1.0 mg/dl (0.2-1.3) 03/04/25 09:52
AST 57 U/L (17-59) 03/04/25 09:52
ALT 38 U/L (0-50) 03/04/25 09:52
Alkaline Phosphatase 54 U/L (38-126) 03/04/25 09:52
Most recent labs reviewed.
Micro Results:
03/04/25 13:34 Blood Culture - Final
Blood/Venous No Growth - Final Report
03/04/25 12:57 Blood Culture - Final
Blood/Venous No Growth - Final Report
03/04/25 11:43 Urine Culture - Final
Urine NO GROWTH
03/04/25 14:36 Blood Parasites Smear - Final
Blood/Venous
03/04/25 09:52 Influenza Types A & B (YAHIR) - Final
Nasal Swab Negative for Influenza A & B, NAAT
Negative results must be combined with clinical observations
and patient history.
Nucleic Acid Amplification test (NAAT)performed on the
[employer] platform.
Laboratory Tests
Tickborne pathogen PCR 03/04/25
14:36
A. phagocytophilum (PCR) Detected A
E.chaffeensis DNA (PCR) Not detected
E. ewingii/canis (PCR) Not detected
E. muris-like DNA (PCR) Not detected
Imaging:
03/04/2025 CXR (portable): moderate acute interstitial cardiogenic pulmonary edema which appears similar to prior radiographic examination from earlier in the day. Moderate cardiomegaly. Mildly decreased bilateral lung volumes. No infiltrate
noted.
[2025-03-10 13:32] LABS: Lyme Antibody Screen, EIA Negative (Negative)
--- NOTE | 2025-03-10 13:33 | CM ---
Reviewed chart. Met with Mr. Wood and spoke with his granddaughter regarding discharge plans. He state he is feeling well and maybe able to go home soon. We reviewed [facility] and after he spoke with his granddaughter dio is agreeable to
[facility]. Telephone call to [facility] to make the referral. Sent referral. Prior to admission he resides with his spouse in a one and half story home with one step to enter enter. He has been using a walker here. Prior to
admission he was independent with ambulation and adls. He does not have any DME in the home for him. His daughters reside close by and are supportive. Will need to see his current functional level to see if he will have any skilled care needs.
Medical work-up in progress. The discharge plan is to return home with his spouse, family support and [facility] when medically stable.
--- NOTE | 2025-03-10 13:33 | W.PN.NEPH.PH ---
Today's Communication / Plan
-
dc planning
Assessment/Plan
-
IMP:
Shortness of breath
Acute hypoxic respiratory insufficiency
Acute on chronic HFPEF
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
Recently treated UTI with Pringle catheter placement early February and removal on 02/21/2025. Follows up with Dr. Cadena as outpatient.
Hyponatremia
Paroxysmal atrial fibrillation
Diabetes-hemoglobin A1c-6.7
Hypertension now hypotension on midodrine
Hyperlipidemia
Hypoalbuminemia
Plan:
Follow BMP
No Samsca required
has not required midodrine today
dc planning
-
-
Date of Service: March 10, 2025
CC / HPI / ROS
-
Chief Complaint:
hyponatremia
History of Present Illness:
sodium better at 135
BP better without midodrine
off O2
Remains in atrial fibrillation, rate controlled
Review of Systems:
no cp or sob
Labs
-
Labs:
WBC 6.2 10^3/uL (4.8-10.8) 03/10/25 02:02
RBC 3.86 10^6/uL (4.70-6.10) L 03/10/25 02:02
Hgb 12.0 g/dL (13.0-18.0) L 03/10/25 02:02
Hct 35.9 % (39.0-52.0) L 03/10/25 02:02
Plt Count 286 10^3/uL (130-400) 03/10/25 02:02
Sodium 135 mmol/L (135-145) 03/10/25 02:02
Potassium 4.3 mmol/L (3.5-5.1) 03/10/25 02:02
Chloride 106 mmol/L (98-107) 03/10/25 02:02
Carbon Dioxide 27 mmol/L (22-30) 03/10/25 02:02
BUN 26 mg/dl (9-20) H 03/10/25 02:02
Creatinine 0.7 mg/dL (0.7-1.3) 03/10/25 02:02
eGFR > 60.00 03/10/25 02:02
Glucose 118 mg/dl (70-99) H 03/10/25 02:02
Calcium 7.9 mg/dl (8.4-10.2) L 03/10/25 02:02
Obm-Y-Tvaujpclqly Pept 1150 pg/ml 03/07/25 04:07
Albumin 2.6 g/dl (3.5-5.0) L 03/09/25 04:15
Physical Exam
-
Vital Signs:
Vital Signs
Temp Pulse Resp BP Pulse Ox
97.9 F 72 20 116/73 96
03/10/25 11:03 03/10/25 13:05 03/10/25 11:03 03/10/25 13:07 03/10/25 11:27
Cardiovascular:: Regular rate and rhythm
Respiratory:: Bilateral: CTA
Lung Excursion:: Normal
Abdomen:: Nontender and Soft
Bowel Sounds:: Normal
Extremity Edema:: None: Bilateral:
[2025-03-10 16:38] LABS: Glucose - Point of Care 134 mg/dl (70-99)
--- NOTE | 2025-03-10 17:41 | PTCARENOTE ---
Pt OOB walking with PT. SBP's maintained at 124-134, orthostatic signs OK, asymptomatic, no midodrine given today. Pt wearing VICKIE stockings. Pt seen by PT. Telemetry and IV device removed. Discharge instructions reviewed with pt and his
granddaughter regarding CHF guidelines, medications and their possible side effects, reporting cares and concerns and follow up appt's. Good understanding verbalized by pt. Pt escorted out via wheelchair and discharged to home. VN to follow up with
pt.
--- NOTE | 2025-03-11 14:37 | W.HF.CON ---
Heart Failure
- LV Function
Left ventricular function study result: LV Ejection fraction >/= 50%
Ejection Fraction Percentage: 61
- ARNI
Patient already on ARNI: No
Heart Failure ARNI Not Indicated: LV Ejection Fraction >/= 40%
- ACEI/ARB
Patient already on ACEI/ARB: No
Heart Failure ACEI/ARB Not Indicated: LV Ejection Fraction > 40%
- Beta Hai
Patient already on Evidence Based Beta Hai: No
Heart Failure Evidence Based Beta Hai Not Indicated: LV Ejection Fraction > 40%
- Mineralocorticord Receptor Antagonist
Patient already on MRA: No
Heart Failure MRA Not Indicated: LV Ejection Fraction > 40%
- SGLT-2 Inhibitor
Patient already on SGLT-2 Inhibitor: No
Heart Failure SGLT-2 Inhibitor Contraindication: Patient Refusal (UTI)
- Afib Anticoagulation
Patient already on Anticoagulation for Afib: Yes
- NYHA CHF Classification
NYHA CHF Classification Level: Class III - Symptoms w/ min exertion, interferes w/ nml daily activity
- ACC/AHA Stage
ACC/AHA Stage: Stage C: Symptomatic Heart Failure
== END 2025-03-10 17:10 | disposition home health service (06) | DRG 291 ==
LOC: IVU 13:08
PROVIDERS: Internal Medicine; Internal Medicine Cardiovascular Disease; Student in an Organized Health Care Education/Training Program; ADMITTING PHYSICIAN Hospitalist; CONSULT PHYSICIAN Internal Medicine Cardiovascular Disease; CONSULT PHYSICIAN Internal Medicine Infectious Disease; EMERGENCY PHYSICIAN Emergency Medicine; FAMILY PHYSICIAN Family Medicine; OTHER PHYSICIAN Internal Medicine
PROC: 5A2204Z Restoration of Cardiac Rhythm, Single (ICD-10-PCS; 2025-03-09)
PROC: B24BZZ4 Ultrasonography of Heart with Aorta, Transesophageal (ICD-10-PCS; 2025-03-09)
DX: I11.0 Hypertensive heart disease with heart failure (principal); I50.33 Acute on chronic diastolic (congestive) heart failure; J96.01 Acute respiratory failure with hypoxia; N39.0 Urinary tract infection, site not specified; E87.1 Hypo-osmolality and hyponatremia; I31.39 Other pericardial effusion (noninflammatory); I47.19 Other supraventricular tachycardia; Q21.12 Patent foramen ovale; I48.0 Paroxysmal atrial fibrillation; I95.1 Orthostatic hypotension; G47.33 Obstructive sleep apnea (adult) (pediatric); E11.9 Type 2 diabetes mellitus without complications; N40.0 Benign prostatic hyperplasia without lower urinary tract symptoms; I49.3 Ventricular premature depolarization; Z11.52 Encounter for screening for COVID-19; E78.00 Pure hypercholesterolemia, unspecified; Z79.01 Long term (current) use of anticoagulants; E88.09 Other disorders of plasma-protein metabolism, not elsewhere classified; Z79.899 Other long term (current) drug therapy; Z79.84 Long term (current) use of oral hypoglycemic drugs; Z82.3 Family history of stroke; Q24.8 Other specified congenital malformations of heart
CPT/HCPCS: 51702; 51798; 71045; 80048; 80053; 81003; 81015; 82040; 82306; 82533; 82570; 82962; 83036; 83735; 83880; 83930; 83935; 84156; 84300; 84443; 84484; 85025; 85027; 86618; 87015; 87040; 87086; 87207; 87468; 87484; 87502; 87798; 87811; 92960; 93005; 93306; 93312; 93320; 93325; 96374; 97116; 97163; 97167; 97530; 97535; 99285